=== PATIENT | female | born 1955 | race Caucasian/White ===

== ENCOUNTER 2023-11-12 09:21 | Emergency (ER) | payer MEDICARE, OTHER ==
--- NOTE | 2023-11-12 09:25 | ERPHSYRPT ---
- History of Present Illness Time Seen by Provider: 11/12/23 09:25 Source: patient, EMS Exam Limitations: no limitations Physician History: This is a 68-year-old morbidly obese white female patient on her porch swing this morning when the porch swing change broke and the patient was sitting in the chair portion. She hit the porch then fell backwards off the porch appr oximately 3 feet injuring her bilateral ribs, and hitting her head. She denies loss of consciousness. She denies headache. She denies neck pain. However, the patient is on Coumadin. Patient was brought into the hospital by the paramedics. Patient's blood sugar on arrival is 96. Additional, independent history was obtained from the patient's daughter. Occurred: just prior to arrival Reason for Fall: fell from height Injuries/Pain Location: head, chest Loss of Consciousness: no loss of consciousness Quality: aching (Lateral chest wall) Severity of Pain-Max: moderate (Bilateral chest wall) Severity of Pain-Current: moderate (Bilateral chest wall) Associated Symptoms (Fall): other (Bilateral chest wall pain) Allergies/Adverse Reactions: No Known Drug Allergies Allergy (Verified 11/12/23 09:24) Home Medications: Albuterol Sulfate [Albuterol Sulfate Hfa] 2 puff PO Q4-6HPRN PRN 11/12/23 [History] Glimepiride 2 mg [Amaryl 2 MG] 2 mg PO DAILY 11/12/23 [History] Meclizine HCl 25 mg [Antivert 25 mg] 25 mg PO TID PRN 11/12/23 [History] Metformin HCl 500 mg [Glucophage 500 MG] 1,000 mg PO BID 11/12/23 [History ] Pioglitazone 30 mg [Actos 30 MG] 30 mg PO DAILY 11/12/23 [History] Warfarin Sodium 1 mg [Coumadin] See Rx Instructions .ROUTE .COMPLEX 11/12/23 [History] Travel Risk - International Travel Have you traveled outside of the country in past 3 weeks: No - Emerging Infectious Disease Are you exhibiting symptoms associated with any current EIDs: No - Review of Systems Constitutional: No Symptoms Eyes: No Symptoms Ears, Nose, & Throat: No Symptoms Respiratory: No Symptoms Cardiac: No Symptoms Abdominal/Gastrointestinal: No Symptoms Genitourinary Symptoms: No Symptoms Musculoskeletal: Fall, Injury (Lateral chest wall) Skin: No Symptoms Neurological: No Symptoms Psychological: No Symptoms Endocrine: No Symptoms Hematologic/Lymphatic: No Symptoms Immunological/Allergic: No Symptoms All Other Systems: Reviewed and Negative - Past Medical History Pertinent Past Medical History: Yes - Past Surgical History Past Surgical History: Yes - Nursing Vital Signs Nursing Vital Signs: Initial Vital Signs Temperature 97.3 F 11/12/23 09:26 Pulse Rate 86 11/12/23 09:26 Respiratory Rate 20 11/12/23 09:26 Blood Pressure 120/71 11/12/23 09:26 O2 Sat by Pulse Oximetry 97 11/12/23 09:26 Pain Scale Pain Intensity 8 - [place] Coma Score Best Eye Response ([place]): (4) open spontaneously Best Verbal Response ([place]): (5) oriented Best Motor Response ([place]): (6) obeys commands [place] Total: 15 - Physical Exam General Appearance: no apparent distress, alert, anxiety Head Injury: no evidence of injury Eye Exam: PERRL/EOMI, eyes nml inspection ENT Exam: airway nml, nml ext.inspection, No evidence of ENT injury Neck Exam: supple, trachea midline, full range of motion, normal alignment, normal inspection Respiratory/Chest Exam: chest tenderness (Chest wall tenderness to palpation.), normal breath sounds, rib tenderness (Bilateral, multiple), No respiratory distress, No ecchymosis, No crepitus, No decreased breath sounds, No wheezing, No accessory muscle use, No subcutaneous emphysema, No palpable fracture, No paradoxical movements Cardiovascular Exam: normal heart sounds, regular rate/rhythm, normal peripheral pulses Gastrointestinal Exam: soft, normal bowel sounds, No tenderness Rectal Exam: not done Back Exam: normal inspection, normal range of motion, No CVA tenderness, No vertebral tenderness Extremity Exam: normal inspection, normal range of motion, pelvis stable Neurologic Exam: alert, oriented x 3, cooperative, 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 No acute isch emia present. QTc is 485.) Ordered Tests: Active Orders 24 hr Category Date Time Status EKG-ER Only STAT Care 11/12/23 11:27 Active IV Insertion STAT Care 11/12/23 11:15 Active CERVICAL SPINE WO CONTRAST [CT] Stat Exams 11/12/23 09:50 Completed CHEST WITHOUT CONTRAST [CT] Stat Exams 11/12/23 09:50 Completed HEAD WITHOUT CONTRAST [CT] Stat Exams 11/12/23 09:50 Completed CBC W DIFF Stat Lab 11/12/23 11:25 Completed CMP Stat Lab 11/12/23 11:25 Completed MAGNESIUM Stat Lab 11/12/23 11:25 Completed POCT GLUCOSE Stat Lab 11/12/23 09:24 Completed PROTIME WITH INR Stat Lab 11/12/23 11:25 Completed TROPONIN Q4H Lab 11/12/23 11:25 Completed TROPONIN Q4H Lab 11/12/23 15:30 Ordered TROPONIN Q4H Lab 11/12/23 19:30 Ordered Medication Summary Discontinued Medications Generic Name Dose Route Start Last Admin Trade Name Freq PRN Reason Stop Dose Admin Hydromorphone HCl 1 mg 11/12/23 09:58 11/12/23 10:09 Hydromorphone 1 Mg/1ml Inj IM 11/12/23 09:59 1 mg STAT ONE Administration Hydromorphone HCl Confirm 11/12/23 10:05 Hydromorphone 1 Mg/1ml Inj Administered 11/12/23 10:06 Dose 1 mg .ROUTE .STK-MED ONE Ondansetron HCl 4 mg 11/12/23 09:59 11/12/23 10:08 Zofran 4 Mg/Udtablet Orally Disintegrating PO 11/12/23 10:00 4 mg STAT ONE Administration Ondansetron HCl Confirm 11/12/23 10:05 Zofran 4 Mg/Udtablet Orally Disintegrating Administered 11/12/23 10:06 Dose 4 mg .ROUTE .STK-MED ONE Orphenadrine Citrate 60 mg 11/12/23 12:11 11/12/23 12:17 Orphenadrine Citrate 60 Mg/2 Ml Vial IV 11/12/23 12:12 60 mg STAT ONE Administration Orphenadrine Citrate Confirm 11/12/23 12:16 Orphenadrine Citrate 60 Mg/2 Ml Vial Administered 11/12/23 12:17 Dose 60 mg .ROUTE .STK-MED ONE Lab/Rad Data: Laboratory Result Diagrams 11/12/23 11:25 11/12/23 11:25 Laboratory Results 11/12/23 11/12/23 11/12/23 Range/Units 11:25 11:25 11:25 WBC (3.98-10.04) x10^3/uL RBC (3.93-5.22) x10^6/uL Hgb (11.2-15.7) g/dL Hct (34.1-44.9) % MCV (79.4-94.8) fL MCH (25.6-32.2) pg MCHC (32.2-35.5) g/dL RDW (11.7-14.4) % Plt Count (182-369) x10^3/uL MPV (9.4-12.3) fL Gran % (34.0-71.1) % Immature Gran % (Auto) (0.001-0.429) % Nucleat RBC Rel Count (0.00-0.2) % Eos # (Auto) (0.04-0.36) x10^3/uL Immature Gran # (Auto) (0.001-0.031) x10^3u/L Absolute Lymphs (auto) (1.18-3.74) x10^3/uL Absolute Monos (auto) (0.24-0.86) x10^3/uL Absolute Nucleated RBC (0.00-0.012) x10^3u/L Lymphocytes % (19.3-51.7) % Monocytes % (4.7-12.5) % Eosinophils % (0.7-5.8) % Basophils % (0.1-1.2) % Absolute Granulocytes (1.56-6.13) x10^3/uL Basophils # (0.01-0.08) x10^3/uL PT 26.9 H (9.4-12.5) SECONDS INR 2.63 (0.8-3.0) Sodium 138 (135-145) mmol/L Potassium 4.4 (3.5-5.1) mmol/L Chloride 102 (98-107) mmol/L Carbon Dioxide 28 (22-30) mmol/L Anion Gap 12.2 (5-15) MEQ/L BUN 11 (7-17) mg/dL Creatinine 0.84 (0.52-1.04) mg/dL Estimated GFR 74.7 ML/MIN Glucose 122 H (74-106) mg/dL POC Glucometer (74 to 106) mg/dL Calcium 8.9 (8.4-10.2) mg/dL Magnesium 1.3 L (1.6-2.3) mg/dL Total Bilirubin 1.20 (0.2-1.3) mg/dL AST 36 (14-36) U/L ALT 24 (0-35) U/L Alkaline Phosphatase 86 (38-126) U/L Troponin I < 0.012 (0.000-0.033) ng/mL Serum Total Protein 7.3 (6.3-8.2) g/dL Albumin 4.1 (3.5-5.0) g/dL 11/12/23 11/12/23 Range/Units 11:25 09:24 WBC 10.4 H (3.98-10.04) x10^3/uL RBC 3.65 L (3.93-5.22) x10^6/uL Hgb 10.4 L (11.2-15.7) g/dL Hct 33.9 L (34.1-44.9) % MCV 92.9 (79.4-94.8) fL MCH 28.5 (25.6-32.2) pg MCHC 30.7 L (32.2-35.5) g/dL RDW 14.6 H (11.7-14.4) % Plt Count 179 L (182-369) x10^3/uL MPV 10.0 (9.4-12.3) fL Gran % 84.5 H (34.0-71.1) % Immature Gran % (Auto) 0.9 H (0.001-0.429) % Nucleat RBC Rel Count 0.0 (0.00-0.2) % Eos # (Auto) 0.06 (0.04-0.36) x10^3/uL Immature Gran # (Auto) 0.09 H (0.001-0.031) x10^3u/L Absolute Lymphs (auto) 0.79 L (1.18-3.74) x10^3/uL Absolute Monos (auto) 0.64 (0.24-0.86) x10^3/uL Absolute Nucleated RBC 0.00 (0.00-0.012) x10^3u/L Lymphocytes % 7.6 L (19.3-51.7) % Monocytes % 6.1 (4.7-12.5) % Eosinophils % 0.6 L (0.7-5.8) % Basophils % 0.3 (0.1-1.2) % Absolute Granulocytes 8.83 H (1.56-6.13) x10^3/uL Basophils # 0.03 (0.01-0.08) x10^3/uL PT (9.4-12.5) SECONDS INR (0.8-3.0) Sodium (135-145) mmol/L Potassium (3.5-5.1) mmol/L Chloride (98-107) mmol/L Carbon Dioxide (22-30) mmol/L Anion Gap (5-15) MEQ/L BUN (7-17) mg/dL Creatinine (0.52-1.04) mg/dL Estimated GFR ML/MIN Glucose (74-106) mg/dL POC Glucometer 96 (74 to 106) mg/dL Calcium (8.4-10.2) mg/dL Magnesium (1.6-2.3) mg/dL Total Bilirubin (0.2-1.3) mg/dL AST (14-36) U/L ALT (0-35) U/L Alkaline Phosphatase (38-126) U/L Troponin I (0.000-0.033) ng/mL Serum Total Protein (6.3-8.2) g/dL Albumin (3.5-5.0) g/dL - Progress Progress Note: 11/12/23 10:33 My medical decision making and the assignment of low to moderate complexity of this patient's medical issue today is based on review of the patient's past medical history, review of the patient's medication list, review the patient drug allergy list, history present illness and physical findings on examination. The workup in this patient includes CT scan of the head, CT scan of the cervical spine and CT scan of the chest all without contrast. Differential diagnosis includes but is not limited to acute intracranial abnormality, contusions of head and chest, fracture or subluxation of cervical spine, rib fractures, rib contusion 11/12/23 11:33 Patient's vital signs have been stable throughout her stay in the emergency department thus far. However, the patient and her daughter state that the patient was feeling "feverish" and does not feel well. The symptoms began when she fell and have worsened. Although her symptoms as described were worse her vital signs have remained stable. She then began having increased shortness of breath and her oxygen saturation level dropped, most likely secondary to the D ilaudid the patient received. We will place an intravenous line and perform a twelve-lead EKG and obtain troponin level 11/12/23 13:[address] scan of the head without contrast was interpreted by the radiologist and I reviewed the impression. Impression straits no gross intracranial abnormalities. CT scan of the cervical spine shows negative for acute fracture or subluxation. There are are multilevel degenerative changes. The remainder of the CT scan of the cervical spine is negative. This study was interpreted by the radiologist and I reviewed the impression. CT scan of the chest without contrast was interpreted by the radiologist and I reviewed the impression. Impression states acute bilateral rib fractures without hemothorax or pneumothorax. There is a minimally displaced left ribs 5 through 9 and anterior lateral right ribs 4 through 8. There is a chronic, remote T12 compression fracture with 50 to 75% height loss. 11/12/23 13:15 I interpreted the patient's laboratory data results. Based on the laboratory data results, there are no acute, emergent medical issues. 11/12/23 13:46 We first contacted [facility] in order to transfer this patient to facility where they have trauma service as well as pulmonary service. The patient needs pulmonary toilet and observation at least overnight and possibly longer. However, in the middle of the conversation with [facility] transfer center, the patient and the patient family preferred being transferred to [facility] if possible. We then contacted [facility] in [facility]. They had no beds available. We placed another call to [facility] transfer center. They are waiting to determine whether or not their facility has trauma service available. 11/12/23 14:04 [facility] did call back and told no longer have trauma service available. Therefore, the family states that transfer to [facility] in [place] was fine. I spoke with Dr. Poe, the trauma service physician on at this time. I reviewed the patient history, physical findings, presenting complaint and results of our workup. He accepts the patient in transfer. Dr. Poe is going to notify [facility] emergency department and we will be transferring this patient emergency department to emergency department. Counseled pt/family regarding: lab results, diagnosis, rad results Medical Desision Making - Independent Historian Additional History obtained from: Family - Diagnostic Testing Diagnostic test were ordered, analyzed, and reviewed by me: Yes Radiological Interpretation: Reviewed by me, Teleradiologist Report - Risk of complications The pt has a high risk of morbidity or mortality based on: Decision regarding hospitilization or escalation of hosp level of care - Departure Departure Disposition: Transfer Clinical Impression: Multiple fractures of ribs of both sides Condition: Fair Critical Care Time: No Referrals: EKATERINA WALL MD [Primary Care Provider] - Follow up/PCP as directed
[2023-11-12 09:38] VITALS: TEMP 97.3
[2023-11-12] MEDS ORDERED: ZOFRAN ODT 4 MG ONE (10:05)
[2023-11-12] MEDS ORDERED: Hydromorphone 1 mg/ml Injection ONE ×2 (10:05→14:25)
[2023-11-12] MEDS: ZOFRAN ODT 4 MG PO ONE (10:08)
[2023-11-12] MEDS: Hydromorphone 1 mg/ml Injection IM ONE (10:09)
--- NOTE | 2023-11-12 11:28 | XRAY ---
Indication: Status post fall. Blood thinner therapy. Multiple contiguous axial images obtained through the head without contrast. Comparison: None Minimal motion artifact degrades study. Age-appropriate global atrophy. No acute intracranial hemorrhage, abnormal extra-axial fluid collection, or mass effect. Fourth ventricle is midline without hydrocephalus. Bony calvarium grossly intact. Visualized paranasal sinuses and mastoid air cells are clear. Impression: Motion artifact. No gross acute intracranial abnormalities.
[2023-11-12 11:29] LABS: Absolute Neutrophil Ct (ANC) 8.83 x10^3/uL (1.56-6.13); BASOPHIL % 0.3 % (0.1-1.2); Basophil (Absolute #) 0.03 x10^3/uL (0.01-0.08); Eosinophil % 0.6 % (0.7-5.8); Eosinophil (Absolute #) 0.06 x10^3/uL (0.04-0.36); Hematocrit 33.9 % (34.1-44.9); Hemoglobin 10.4 g/dL (11.2-15.7); IMMATURE GRAN # 0.09 x10^3u/L (0.001-0.031); IMMATURE GRAN % 0.9 % (0.001-0.429); Lymphocyte (Absolute #) 0.79 x10^3/uL (1.18-3.74); Lymphocytes % 7.6 % (19.3-51.7); Mean Cell Volume 92.9 fL (79.4-94.8); Mean Corpuscular Hemoglobin 28.5 pg (25.6-32.2); Mean Corpuscular Hgb Concent. 30.7 g/dL (32.2-35.5); Monocyte (Absolute #) 0.64 x10^3/uL (0.24-0.86); Monocytes % 6.1 % (4.7-12.5); Neutrophil % 84.5 % (34.0-71.1); Platelet Count 179 x10^3/uL (182-369); Red Blood Count 3.65 x10^6/uL (3.93-5.22); Red Cell Distribution Width 14.6 % (11.7-14.4); White Blood Count 10.4 x10^3/uL (3.98-10.04)
--- NOTE | 2023-11-12 11:30 | XRAY ---
Indication: Status post fall. Blood thinner therapy. Multiple contiguous axial images obtained through the cervical spine. Sagittal and coronal reformatted images obtained. Comparison: None Osseous structures demineralized consistent with patient's age. Axial images negative for acute fracture, suspicious bony lesions, spinal canal stenosis. Mild C5-T1 degenerative endplate spurring and mild multilevel bilateral degenerative facet hypertrophy. Sagittal and coronal reformatted images demonstrates normal alignment. C5-T1 degenerative disc space loss. No acute compression fracture, subluxation, or jumped facet. Normal appearing craniocervical junction. Visualized noncontrasted soft tissues are unremarkable. CTDI is CT chest reported separately. Impression: Osteopenia and multilevel degenerative changes. Remaining CT cervical spine is negative.
--- NOTE | 2023-11-12 11:38 | XRAY ---
Indication: Status post fall. Blood thinner therapy. Multiple contiguous axial images obtained through the chest without contrast. Comparison: None Lungs demonstrate scattered bilateral subsegmental atelectasis/scarring. No suspicious pulmonary mass/nodule, infiltrate, effusion, or pneumothorax. Heart is enlarged. Aorta is minimally atherosclerotic without aneurysm. No pathologic mediastinal lymphadenopathy. Bony thorax demonstrates minimally displaced lateral left 5-9 and anterolateral right 4-8 acute rib fractures. Elsewhere osteopenia, minimal/mild multilevel degenerative changes throughout spine, and remote T12 compression fracture with 50-75% height loss. Limited upper abdomen demonstrates right renal cortical thinning/scarring and incompletely visualized right renal hydronephrosis versus parapelvic cysts. Impression: 1. Acute bilateral rib fractures without hemothorax/pneumothorax. 2. Chronic findings including cardiomegaly, arteriosclerotic disease, and chronic bony findings. 3. Incompletely visualized right renal hydronephrosis versus parapelvic cysts. Renal sonogram may help differentiate if there is clinical concern.
[2023-11-12 11:46] LABS: INR 2.63 (0.8-3.0); PROTIME 26.9 SECONDS (9.4-12.5)
[2023-11-12] MEDS ORDERED: Norflex 60 MG/2 ML ONE (12:16)
[2023-11-12] MEDS: Norflex 60 MG/2 ML IV ONE (12:17)
[2023-11-12 12:32] LABS: ALBUMIN 4.1 g/dL (3.5-5.0); ANION GAP 12.2 MEQ/L (5-15); BILIRUBIN,TOTAL 1.2 mg/dL (0.2-1.3); Calcium 8.9 mg/dL (8.4-10.2); Creatinine 1 0.84 mg/dL (0.52-1.04); EST GLOMERULAR FILTRATION RATE 74.7 ML/MIN; MAGNESIUM 1.3 mg/dL (1.6-2.3); Potassium 4.4 mmol/L (3.5-5.1); Total Protein 7.3 g/dL (6.3-8.2)
[2023-11-12] MEDS: Hydromorphone 1 mg/ml Injection IV ONE (14:26)
[2023-11-12 14:30] VITALS: O2SAT 99
[2023-11-12 14:31] VITALS: BP 131/88; PULSE 96; RESP 17
== END 2023-11-12 15:11 | disposition short-term general hospital (02) ==
LOC: ED 09:21
DX: S22.43XA Multiple fractures of ribs, bilateral, initial encounter for closed fracture (principal); W17.89XA Other fall from one level to another, initial encounter; Y92.007 Garden or yard of unspecified non-institutional (private) residence as the place of occurrence of the external cause; Z79.84 Long term (current) use of oral hypoglycemic drugs; Z79.01 Long term (current) use of anticoagulants; Z79.899 Other long term (current) drug therapy
CPT/HCPCS: 36000; 36415; 70450; 71250; 72125; 80053; 82947; 83735; 84484; 85025; 85610; 93005; 93041; 96372; 96374; 96376; 99285; J1170; J2360; Q0162

== ENCOUNTER 2024-02-08 19:42 | Emergency (ER) | payer MEDICARE ==
--- NOTE | 2024-02-08 19:46 | ERPHSYRPT ---
- History of Present Illness Time Seen by Provider: 02/08/24 19:46 Source: patient, family, EMS Exam Limitations: no limitations Physician History: This is a 76-year-old obese white female patient of Dr. Rodriguez who is on Coumadin and has a history of atrial fibrillation, chronic intermittent dizziness on meclizine, diabetes, COPD/asthma and brittle bone disease who arrives by paramedics with a complaint of head pain and right side neck pain after falling approximately 3 feet off of her porch hitting her head and neck on the right side. Patient became dizzy as she was walking into the home and fell. She denies loss of consciousness. Patient arrives to the emergency department with a c-collar in place. Occurred: just prior to arrival Injuries/Pain Location: head, neck Loss of Consciousness: no loss of consciousness Quality: aching Severity of Pain-Max: moderate Severity of Pain-Current: moderate Modifying Factors: Improves With: movement Associated Symptoms (Fall): dizziness (None now), headache, neck pain, No confusion, No chest pain Allergies/Adverse Reactions: No Known Drug Allergies Allergy (Verified 02/08/24 19:46) Home Medications: Apixaban [Eliquis] 5 mg PO BID 02/08/24 [History] Bupropion HCl 150 mg Sr [Wellbutrin SR 150 MG] 150 mg PO DAILY 02/08/24 [History] Duloxetine HCl 60 mg PO DAILY 02/08/24 [History] Famotidine 40 mg PO DAILY 02/08/24 [History] Gabapentin 400 mg PO QID 02/08/24 [History] Hydrochlorothiazide 25 mg [hydroDIURIL 25 MG] 25 mg PO DAILY 02/08/24 [His tory] Levothyroxine Sodium 50 mcg PO DAILY 02/08/24 [History] Meclizine HCl 25 mg [Antivert 25 mg] 25 mg PO TID 02/08/24 [History] Mirtazapine 15 mg PO HS 02/08/24 [History] Primidone 50 MG [Mysoline 50Mg] 50 mg PO TID 02/08/24 [History] Sertraline HCl [Zoloft] 25 mg PO DAILY 02/08/24 [History] Simvastatin 80 mg PO DAILY 02/08/24 [History] Sucralfate 1 gm [Carafate 1 GM] 1 g PO QID 02/08/24 [History] Tirzepatide [Mounjaro] 2.5 mg SQ WEEKLY 02/08/24 [History] Hx Tetanus, Diphtheria Vaccination/Date Given: Yes Hx Influenza Vaccination/Date Given: Yes Hx Pneumococcal Vaccination/Date Given: Yes Travel Risk - International Travel Have you traveled outside of the country in past 3 weeks: No - Emerging Infectious Disease Are you exhibiting symptoms associated with any current EIDs: No - Review of Systems Constitutional: No Symptoms Eyes: No Symptoms Ears, Nose, & Throat: No Symptoms Respiratory: No Symptoms Cardiac: No Symptoms Abdominal/Gastrointestinal: No Symptoms Genitourinary Symptoms: No Symptoms Musculoskeletal: Neck Pain Skin: No Symptoms Neurological: Dizziness (Now resolved), Headache Psychological: No Symptoms Endocrine: No Symptoms Hematologic/Lymphatic: No Symptoms Immunological/Allergic: No Symptoms All Other Systems: Reviewed and Negative - Past Medical History Pertinent Past Medical History: Yes Cardiac History: Arrhythmia, Other Respiratory History: Asthma, COPD Endocrine Medical History: Diabetes Type II Musculoskeletal History: Fractures GI Medical History: Gallbladder Disease Other Medical History: A-fib, brittle bone disease - Past Surgical History Past Surgical History: Yes Gastrointestinal: Appendectomy, Cholecystectomy Musculoskeletal: Other Female Surgical History: Hysterectomy, Section, Tubal Ligation Other Surgical History: bilateral ankles - Social History Smoking Status: Former smoker Drug Use: other - Social Determinants of Health Will the patient participate in the screening: Yes Do you worry about a steady place to live?: No In the past 12 months,have you had to go without utilities?: No Transportation Issues: No Has anyone in your support network made you feel unsafe?: No Have you or anyone in your house had to go without enough: No - Nursing Vital Signs Nursing Vital Signs: Initial Vital Signs Pulse Rate 77 02/08/24 19:47 Respiratory Rate 21 02/08/24 19:47 Blood Pressure 122/72 02/08/24 19:47 O2 Sat by Pulse Oximetry 98 02/08/24 19:47 Pain Scale Pain Intensity 9 - Vijay Coma Score Best Eye Response (Vijay): (4) open spontaneously Best Verbal Response (Vijay): (5) oriented Best Motor Response (Vijay): (6) obeys commands Vijay Total: 15 - Physical Exam General Appearance: no apparent distress, alert, anxiety, obese Head Injury: no evidence of injury Eye Exam: PERRL/EOMI, eyes nml inspection ENT Exam: airway nml, nml ext.inspection Neck Exam: trachea midline, c-collar in place Respiratory/Chest Exam: normal breath sounds, No chest tenderness, No respi ratory distress, No ecchymosis, No crepitus, No accessory muscle use Cardiovascular Exam: normal heart sounds, regular rate/rhythm Gastrointestinal Exam: soft, normal bowel sounds Rectal Exam: not done Back Exam: normal inspection, normal range of motion, No CVA tenderness, No vertebral tenderness Extremity Exam: normal inspection, normal range of motion, pelvis stable Neurologic Exam: alert, oriented x 3, cooperative, second rigger II-XII nml as tested, n ormal mood/affect, sensation nml Skin Exam: normal color, warm, dry SpO2 Interpretation: normal O2 Delivery: Room Air Ordered Tests: Active Orders 24 hr Category Date Time Status EKG-ER Only STAT Care 02/08/24 20:29 Active IV Insertion STAT Care 02/08/24 20:26 Active CERVICAL SPINE WO CONTRAST [CT] Stat Exams 02/08/24 19:46 Taken HEAD WITHOUT CONTRAST [CT] Stat Exams 02/08/24 19:46 Taken CBC W DIFF Stat Lab 02/08/24 20:40 Completed CMP Stat Lab 02/08/24 20:40 Received MAGNESIUM Stat Lab 02/08/24 20:40 Received POCT GLUCOSE Stat Lab 02/08/24 19:51 Completed PT INR [PROTIME WITH INR] Stat Lab 02/08/24 20:40 Completed TROPONIN Q4H Lab 02/08/24 20:40 Received TROPONIN Q4H Lab 02/09/24 00:30 Ordered TROPONIN Q4H Lab 02/09/24 04:30 Ordered UA W/RFX UR CULTURE Stat Lab 02/08/24 20:29 Ordered Medication Summary Generic Name Dose Route Start Last Admin Trade Name Freq PRN Reason Stop Dose Admin Sodium Chloride 1,000 mls @ 50 mls/hr 02/08/24 20:30 02/08/24 20:33 Sodium Chloride 0.9% 1000 Ml IV 03/09/24 20:29 50 mls/hr .Q20H TYRELL Administration Discontinued Medications Generic Name Dose Route Start Last Admin Trade Name Freq PRN Reason Stop Dose Admin Morphine Sulfate 2 mg 02/08/24 20:33 02/08/24 20:41 Morphine Sulfate 2 Mg/Ml Inj IV 02/08/24 20:34 2 mg STAT ONE Administration Morphine Sulfate Confirm 02/08/24 20:38 Morphine Sulfate 2 Mg/Ml Inj Administered 02/08/24 20:39 Dose 2 mg .ROUTE .STK-MED ONE Ondansetron HCl 4 mg 02/08/24 20:33 02/08/24 20:41 Ondansetron Hcl 4 Mg/2 Ml Vial IV 02/08/24 20:34 4 mg STAT ONE Administration Ondansetron HCl Confirm 02/08/24 20:38 Ondansetron Hcl 4 Mg/2 Ml Vial Administered 02/08/24 20:39 Dose 4 mg .ROUTE .STK-MED ONE Lab/Rad Data: Laboratory Result Diagrams 02/08/24 20:40 Laboratory Results 02/08/24 02/08/24 02/08/24 Range/Units 20:40 20:40 19:51 WBC 9.5 (3.98-10.04) x10^3/uL RBC 3.96 (3.93-5.22) x10^6/uL Hgb 11.1 L (11.2-15.7) g/dL Hct 35.0 (34.1-44.9) % MCV 88.4 (79.4-94.8) fL MCH 28.0 (25.6-32.2) pg MCHC 31.7 L (32.2-35.5) g/dL RDW 14.9 H (11.7-14.4) % Plt Count 159 L (182-369) x10^3/uL MPV 10.1 (9.4-12.3) fL Gran % 80.8 H (34.0-71.1) % Immature Gran % (Auto) 0.6 H (0.001-0.429) % Nucleat RBC Rel Count 0.0 (0.00-0.2) % Eos # (Auto) 0.12 (0.04-0.36) x10^3/uL Immature Gran # (Auto) 0.06 H (0.001-0.031) x10^3u/L Absolute Lymphs (auto) 0.96 L (1.18-3.74) x10^3/uL Absolute Monos (auto) 0.66 (0.24-0.86) x10^3/uL Absolute Nucleated RBC 0.00 (0.00-0.012) x10^3u/L Lymphocytes % 10.1 L (19.3-51.7) % Monocytes % 7.0 (4.7-12.5) % Eosinophils % 1.3 (0.7-5.8) % Basophils % 0.2 (0.1-1.2) % Absolute Granulocytes 7.64 H (1.56-6.13) x10^3/uL Basophils # 0.02 (0.01-0.08) x10^3/uL PT 12.4 (9.4-12.5) SECONDS INR 1.15 (0.8-3.0) POC Glucometer 204 H (74 to 106) mg/dL - Progress Progress: unchanged, pain not gone completely, re-examined Progress Note: 02/08/24 20:40 My medical decision making and the assignment of at least moderate complexity to this patient's medical issue today is based on review of the patient's past medical history, review the patient's medication list, reviewed patient drug allergy list, history present illness and physical findings on examination. The workup in this patient includes CT scan of the head and neck without contrast, CBC, CMP, urinalysis, twelve-lead EKG, troponin level. Differential diagnosis includes but is not limited to acute intracranial abnormality, acute cervical spine abnormality, electrolyte abnormalities, symptomatic anemia, electrolyte abnormalities, urinary tract infection 02/08/24 21:[address] scan of the head without contrast was interpreted by the radiologist and I reviewed the impression. The impression states negative CT scan of the head without contrast study. CT scan of the cervical spine without contrast was interpreted by Dr. Vasquez, our in-house radiologist and I reviewed the impression as well as spoke to him. He interpreted the cervical spine without contrast as nondisplaced type III C2 odontoid fracture also nondisplaced fracture C2 right lamina and spinous process. I spoke with Dr. Salinas at [facility] in [facility]. I reviewed the patient history, presenting complaint, physical findings which i ncluded no neurologic deficit, and the results of the CT scan studies that were performed. She accepts the patient in transfer to the emergency department. We are making discs for this patient to take with her during transport to that facility. According to our radiology department, our hospital does not have the ability to upload radiographic studies to [facility] through the cloud. Counseled pt/family regarding: lab results, diagnosis, rad results Medical Desision Making - Independent Historian Additional History obtained from: Family - Discussion of managment Care discussed with:: specialist (Dr. David at [facility]) Reviewed:: Test results, Need for additional workup Will see patient: in ED (In [place]) - Diagnostic Testing Diagnostic test were ordered, analyzed, and reviewed by me: Yes Radiological Interpretation: Reviewed by me, Teleradiologist Report - Risk of complications The pt has a high risk of morbidity or mortality based on: Decision regarding hospitilization or escalation of hosp level of care - Departure Departure Disposition: Home Clinical Impression: Fall with significant injury, Odontoid fracture, Hypokalemia, Hypomagnesemia Condition: Fair Critical Care Time: Yes Critical Care Time(excluding separately billable procedures): Critical 30-74 mins (40) Referrals: [facility]LOCATION] - Follow up/PCP as directed
[2024-02-08 19:59] VITALS: TEMP 97.7
[2024-02-08] MEDS ORDERED: Sodium Chloride 0.9% 1000 ML 1,000 ML ONE (20:31)
[2024-02-08] MEDS: Sodium Chloride 0.9% 1000 ML 1,000 ML IV SCH (20:33)
[2024-02-08] MEDS ORDERED: Zofran 4 MG/2 ML VIAL ONE (20:38)
[2024-02-08] MEDS ORDERED: MORPHINE SULFATE 2 MG INJ ONE ×2 (20:38→21:27)
[2024-02-08] MEDS: MORPHINE SULFATE 2 MG INJ IV ONE ×2 (20:41→21:29)
[2024-02-08] MEDS: Zofran 4 MG/2 ML VIAL IV ONE (20:41)
[2024-02-08 20:47] LABS: Absolute Neutrophil Ct (ANC) 7.64 x10^3/uL (1.56-6.13); BASOPHIL % 0.2 % (0.1-1.2); Basophil (Absolute #) 0.02 x10^3/uL (0.01-0.08); Eosinophil % 1.3 % (0.7-5.8); Eosinophil (Absolute #) 0.12 x10^3/uL (0.04-0.36); Hemoglobin 11.1 g/dL (11.2-15.7); IMMATURE GRAN # 0.06 x10^3u/L (0.001-0.031); IMMATURE GRAN % 0.6 % (0.001-0.429); Lymphocyte (Absolute #) 0.96 x10^3/uL (1.18-3.74); Lymphocytes % 10.1 % (19.3-51.7); Mean Cell Volume 88.4 fL (79.4-94.8); Mean Corpuscular Hgb Concent. 31.7 g/dL (32.2-35.5); Mean Platelet Volume 10.1 fL (9.4-12.3); Monocyte (Absolute #) 0.66 x10^3/uL (0.24-0.86); Neutrophil % 80.8 % (34.0-71.1); Platelet Count 159 x10^3/uL (182-369); Red Blood Count 3.96 x10^6/uL (3.93-5.22); Red Cell Distribution Width 14.9 % (11.7-14.4); White Blood Count 9.5 x10^3/uL (3.98-10.04)
[2024-02-08 21:01] LABS: INR 1.15 (0.8-3.0); PROTIME 12.4 SECONDS (9.4-12.5)
[2024-02-08 21:08] LABS: ANION GAP 14.4 MEQ/L (5-15); BILIRUBIN,TOTAL 1.3 mg/dL (0.2-1.3); Calcium 8.6 mg/dL (8.4-10.2); Creatinine 1 1.24 mg/dL (0.52-1.04); EST GLOMERULAR FILTRATION RATE 46.8 ML/MIN; Total Protein 7.1 g/dL (6.3-8.2)
[2024-02-08 21:19] VITALS: RESP 14
[2024-02-08 21:29] LABS: MAGNESIUM 0.9 mg/dL (1.6-2.3); Potassium 2.6 mmol/L (3.5-5.1)
[2024-02-08] MEDS ORDERED: Magnesium Sulfate 1 GM/2 ML VIAL ONE (21:39)
[2024-02-08] MEDS ORDERED: POTASSIUM CHLORIDE 20 mEq IN WATER 100ML 100 ML IV ONE (21:40)
[2024-02-08] MEDS ORDERED: Magnesium 1 Gm / 100 Ml D5W*** 100 ML IV ONE (21:40)
[2024-02-08] MEDS: Magnesium Sulfate 1 GM/2 ML VIAL IV ONE (21:42)
[2024-02-08] MEDS: POTASSIUM CHLORIDE 20 mEq IN WATER 100ML 20 MEQ/100 ML BAG IV ONE (21:45)
[2024-02-08] MEDS: Magnesium 1 Gm / 100 Ml D5W*** 100 ML IV ONE (21:45)
[2024-02-08 22:08] VITALS: BP 129/84; PULSE 89; O2SAT 95
--- NOTE | 2024-02-09 08:36 | XRAY ---
Indication: Dizziness. Status post fall. Stroke. Multiple contiguous axial images obtained through the head without contrast. Comparison: November 12, 2023 Again age-appropriate global atrophy. No acute intracranial hemorrhage, abnormal extra-axial fluid collection, or mass effect. Fourth ventricle is midline without hydrocephalus. Adan-white matter differentiation preserved. Bony calvarium intact. Visualized paranasal sinuses and mastoid air cells are clear. CT cervical spine reported separately. Impression: Continued negative CT head without contrast exam.
--- NOTE | 2024-02-09 08:46 | XRAY ---
Indication: Pain following fall. Multiple contiguous axial images obtained through the cervical spine. Sagittal and coronal reformatted images obtained. Comparison: November 12, 2023 Osseous structures remain demineralized. C2 demonstrates new minimally angulated odontoid type III fracture. Fracture line further extends vertically through anterior body of C2. Posterior elements of C2 also demonstrates new nondisplaced fracture right lamina and also minimally displaced comminuted fracture spinous process. Base of skull also demonstrates new nondisplaced comminuted fracture base of left occipital condyle. Above fractures are negative for spinal canal stenosis. Remaining levels demonstrate stable mild C5-T1 degenerative endplate spurring and mild multilevel bilateral degenerative facet hypertrophy. Sagittal and coronal reformatted images demonstrates lordotic straightening, positional versus paraspinal spasm. Stable C5-T1 disc space loss. No acute compression fracture, subluxation, or jumped facet. Normal appearing craniocervical junction. Visualized noncontrasted soft tissues again demonstrate minimal bilateral carotid calcifications. Lung apices clear. Impression: 1. New acute fractures involving anterior and posterior elements of C2 as detailed. 2. New acute fracture base of left occipital condyle. 3. Again chronic findings including osteopenia, multilevel degenerative changes, and bilateral carotid calcifications. Comment: Telephone report was given to Dr. Powell at 2056 hrs. on February 08, 2024.
== END 2024-02-08 22:40 | disposition short-term general hospital (02) ==
LOC: ED 19:42
DX: S12.121A Other nondisplaced dens fracture, initial encounter for closed fracture (principal); S12.191A Other nondisplaced fracture of second cervical vertebra, initial encounter for closed fracture; W17.89XA Other fall from one level to another, initial encounter; Y92.007 Garden or yard of unspecified non-institutional (private) residence as the place of occurrence of the external cause; E87.6 Hypokalemia; E83.42 Hypomagnesemia; R51.9 Headache, unspecified; M54.2 Cervicalgia; E11.9 Type 2 diabetes mellitus without complications; Z79.01 Long term (current) use of anticoagulants; Z79.85 Long-term (current) use of injectable non-insulin antidiabetic drugs; Z79.899 Other long term (current) drug therapy
CPT/HCPCS: 36000; 36415; 70450; 72125; 80053; 82947; 83735; 84484; 85025; 85610; 93005; 96365; 96368; 96374; 96375; 96376; 99285; 99291; J2270; J2405; J3475; J3480

== ENCOUNTER 2024-02-25 22:38 | Emergency (ER) | payer MEDICARE ==
[2024-02-25 23:16] VITALS: PULSE 85; TEMP 98.1; O2SAT 98
[2024-02-25 23:30] LABS: Absolute Neutrophil Ct (ANC) 3.36 x10^3/uL (1.56-6.13); BASOPHIL % 0.4 % (0.1-1.2); Basophil (Absolute #) 0.02 x10^3/uL (0.01-0.08); Eosinophil % 2.2 % (0.7-5.8); Eosinophil (Absolute #) 0.11 x10^3/uL (0.04-0.36); Hematocrit 34.5 % (34.1-44.9); Hemoglobin 11.2 g/dL (11.2-15.7); IMMATURE GRAN # 0.01 x10^3u/L (0.001-0.031); IMMATURE GRAN % 0.2 % (0.001-0.429); Mean Cell Volume 88.9 fL (79.4-94.8); Mean Corpuscular Hemoglobin 28.9 pg (25.6-32.2); Mean Corpuscular Hgb Concent. 32.5 g/dL (32.2-35.5); Mean Platelet Volume 9.9 fL (9.4-12.3); Monocyte (Absolute #) 0.51 x10^3/uL (0.24-0.86); Monocytes % 10.2 % (4.7-12.5); Platelet Count 229 x10^3/uL (182-369); Red Blood Count 3.88 x10^6/uL (3.93-5.22); Red Cell Distribution Width 14.8 % (11.7-14.4)
--- NOTE | 2024-02-25 23:31 | ERPHSYRPT ---
- History of Present Illness Time Seen by Provider: 02/25/24 23:27 Source: patient, family Exam Limitations: no limitations Patient Subjective Stated Complaint: pt states she has had a headache since her fall more than 2 weeks ago, has been getting worse. Triage Nursing Assessment: pt alert and oriented, answers questions approp, pt to room per wheelchair and up with assist of 1. respirations nonlabored. skin warm and dry. c collar in place. pupils equal and reactivept moves bilat upper and lower ext without diff. Physician History: pt states she has had a headache since her fall more than 2 weeks ago, has been getting worse. Patient is 68-year-old female with significant past medical history of diabetes hypertension atrial fibrillation had a fall 4 weeks ago at that time she has a C2 fracture with minimal hematoma which was treated conservatively when she was discharged home with physical therapy as an outpatient since then patient has a headache and patient had another fall. Initially patient was on warfarin but it was changed to Eliquis for the last 1 month. Patient is complaining of mainly frontal and occipital area headache. Patient denies any nausea vomiting. Because of the headache patient is very unsteady as well as patient also has a osteoporosis which is also making her weak in her gait and more propensity to fall. Otherwise patient denies any other symptoms at present in ER. Timing/Duration: week(s) Head Pain Location: frontal, occipital Severity of Pain-Max: moderate Severity of Pain-Current: moderate Recent Head Trauma: head trauma > 24 hrs ago Associated Symptoms: denies symptoms Allergies/Adverse Reactions: No Known Drug Allergies Allergy (Verified 02/25/24 23:17) Home Medications: Apixaban [Eliquis] 5 mg PO BID 02/08/24 [History] Bupropion HCl 150 mg Sr [Wellbutrin SR 150 MG] 150 mg PO DAILY 02/08/24 [History] Duloxetine HCl 60 mg PO DAILY 02/08/24 [History] Famotidine 40 mg PO DAILY 02/08/24 [History] Gabapentin 400 mg PO QID 02/08/24 [History] Hydrochlorothiazide 25 mg [hydroDIURIL 25 MG] 25 mg PO DAILY 02/08/24 [History] Levothyroxine Sodium 50 mcg PO DAILY 02/08/24 [History] Meclizine HCl 25 mg [Antivert 25 mg] 25 mg PO TID 02/08/24 [History] Mirtazapine 15 mg PO HS 02/08/24 [History] Primidone 50 MG [Mysoline 50Mg] 50 mg PO TID 02/08/24 [History] Sertraline HCl [Zoloft] 25 mg PO DAILY 02/08/24 [History] Simvastatin 80 mg PO DAILY 02/08/24 [History] Sucralfate 1 gm [Carafate 1 GM] 1 g PO QID 02/08/24 [History] Tirzepatide [Mounjaro] 2.5 mg SQ WEEKLY 02/08/24 [History] Hx Tetanus, Diphtheria Vaccination/Date Given: Yes Hx Influenza Vaccination/Date Given: Yes Hx Pneumococcal Vaccination/Date Given: Yes Immunizations Up to Date: Yes Travel Risk - International Travel Have you traveled outside of the country in past 3 weeks: No - Emerging Infectious Disease Are you exhibiting symptoms associated with any current EIDs: No - Review of Systems Constitutional: No Fever, No Chills Eyes: No Symptoms Ears, Nose, & Throat: No Symptoms Respiratory: No Cough, No Dyspnea Cardiac: No Chest Pain, No Edema, No Syncope Abdominal/Gastrointestinal: No Abdominal Pain, No Nausea, No Vomiting, No Diarrhea Genitourinary Symptoms: No Dysuria Musculoskeletal: Fall, No Back Pain, No Neck Pain Skin: No Rash Neurological: Headache, No Dizziness, No Focal Weakness, No Sensory Changes Psychological: No Symptoms Endocrine: No Symptoms All Other Systems: Reviewed and Negative - Past Medical History Pertinent Past Medical History: Yes Cardiac History: Arrhythmia, Other Respiratory History: Asthma, COPD Endocrine Medical History: Diabetes Type II Musculoskeletal History: Fractures GI Medical History: Gallbladder Disease Other Medical History: A-fib, brittle bone disease, fall 2.5 weeks ago with c2, c3, c4 fracture and states blood clot behind c4 - Past Surgical History Past Surgical History: Yes Gastrointestinal: Appendectomy, Cholecystectomy Musculoskeletal: Other Female Surgical History: Hysterectomy, Section, Tubal Ligation Other Surgical History: bilateral ankles - Social History Smoking Status: Former smoker Exposure to second hand smoke: No Drug Use: other - Social Determinants of Health Will the patient participate in the screening: Yes Do you worry about a steady place to live?: No Do you have any problems with any of the following?: No known problems In the past 12 months,have you had to go without utilities?: No Transportation Issues: No Has anyone in your support network made you feel unsafe?: No Have you or anyone in your house had to go without enough: No - Nursing Vital Signs Nursing Vital Signs: Initial Vital Signs Temperature 98.1 F 02/25/24 23:01 Pulse Rate 85 02/25/24 23:01 Respiratory Rate 16 02/25/24 23:01 Blood Pressure 137/61 02/25/24 23:01 O2 Sat by Pulse Oximetry 98 02/25/24 23:01 Pain Scale Pain Intensity 10 - Physical Exam General Appearance: no apparent distress Eye Exam: PERRL/EOMI Ears, Nose, Throat Exam: normal ENT inspection, moist mucous membranes Neck Exam: normal inspection, supple, full range of motion, No meningismus Respiratory Exam: normal breath sounds, lungs clear Cardiovascular Exam: regular rate/rhythm, normal heart sounds Gastrointestinal/Abdominal Exam: soft, No tenderness, No distention Back Exam: normal inspection, normal range of motion Extremity Exam: normal inspection, normal range of motion, pelvis stable Mental Status Exam: alert, oriented x 3, cooperative sewer pipe layer Exam: normal speech, PERRL, No facial droop Coordination/Gait Exam: normal finger to nose, normal cerebellar function Motor/Sensory Exam: no motor deficit, no sensory deficit DTR Exam: bicep (R): 2+, bicep (L): 2+, tricep (R): 2+, tricep (L): 2+, knee (R): 2+, knee (L): 2+, ankle (R): 2+, ankle (L): 2+ Skin Exam: normal color, warm, dry, No rash SpO2 Interpretation: normal SpO2: 98 O2 Delivery: Room Air - Course Nursing assessment & vital signs reviewed: Yes - CT Exams Head CT Interpretation: Tele-radiologist Report Cervical Spine CT Interpretation: Tele-radiologist Report Ordered Tests: Active Orders 24 hr Category Date Time Status IV Insertion STAT Care 02/25/24 23:09 Active CERVICAL SPINE WO CONTRAST [CT] Routine Exams 02/25/24 23:01 Completed HEAD WITHOUT CONTRAST [CT] Stat Exams 02/25/24 22:52 Completed CBC W DIFF Stat Lab 02/25/24 23:28 Completed CMP Stat Lab 02/25/24 23:28 Completed Erythrocyte Sedimentation Rate Stat Lab 02/25/24 23:28 Completed Lab/Rad Data: Laboratory Result Diagrams 02/25/24 23:28 02/25/24 23:28 Laboratory Results 02/25/24 02/25/24 Range/Units 23:28 23:28 WBC 5.0 (3.98-10.04) x10^3/uL RBC 3.88 L (3.93-5.22) x10^6/uL Hgb 11.2 (11.2-15.7) g/dL Hct 34.5 (34.1-44.9) % MCV 88.9 (79.4-94.8) fL MCH 28.9 (25.6-32.2) pg MCHC 32.5 (32.2-35.5) g/dL RDW 14.8 H (11.7-14.4) % Plt Count 229 (182-369) x10^3/uL MPV 9.9 (9.4-12.3) fL Gran % 67.0 (34.0-71.1) % Immature Gran % (Auto) 0.2 (0.001-0.429) % Nucleat RBC Rel Count 0.0 (0.00-0.2) % Eos # (Auto) 0.11 (0.04-0.36) x10^3/uL Immature Gran # (Auto) 0.01 (0.001-0.031) x10^3u/L Absolute Lymphs (auto) 1.00 L (1.18-3.74) x10^3/uL Absolute Monos (auto) 0.51 (0.24-0.86) x10^3/uL Absolute Nucleated RBC 0.00 (0.00-0.012) x10^3u/L Lymphocytes % 20.0 (19.3-51.7) % Monocytes % 10.2 (4.7-12.5) % Eosinophils % 2.2 (0.7-5.8) % Basophils % 0.4 (0.1-1.2) % Absolute Granulocytes 3.36 (1.56-6.13) x10^3/uL Basophils # 0.02 (0.01-0.08) x10^3/uL ESR 39 H (0-20) mm/hr Sodium 140 (135-145) mmol/L Potassium 3.3 L (3.5-5.1) mmol/L Chloride 102 (98-107) mmol/L Carbon Dioxide 28 (22-30) mmol/L Anion Gap 12.9 (5-15) MEQ/L BUN 14 (7-17) mg/dL Creatinine 0.89 (0.52-1.04) mg/dL Estimated GFR 69.7 ML/MIN Glucose 132 H (74-106) mg/dL Calcium 9.2 (8.4-10.2) mg/dL Total Bilirubin 0.90 (0.2-1.3) mg/dL AST 41 H (14-36) U/L ALT 25 (0-35) U/L Alkaline Phosphatase 175 H (38-126) U/L Serum Total Protein 7.4 (6.3-8.2) g/dL Albumin 4.0 (3.5-5.0) g/dL CLINICAL HISTORY: [facility] COMPARISON: 08 feb 2024. TECHNIQUE: Multiple axial images are obtained from the skull base to the vertex without contrast. CT scan was performed according to ALARA (as low as reasonably achievable). FINDINGS: There is cerebral atrophy. No evidence of space occupying lesion, hemorrhage, edema, mass effect, midline shift, extra axial collection, or hydrocephalus is noted. Basal cisterns are symmetric and normal in size and configuration. There are scattered periventricular hypodensities as can be seen with chronic microvascular ischemic changes. The bonilla-white matter differentiation is preserved. Visualized paranasal sinuses and mastoid air cells are well aerated. Orbital contents are within normal limits. Bony structures are intact. IMPRESSION: 1. No evidence of acute intracranial abnormality is demonstrated. 2. Chronic microvascular ischemic changes. 3. Cerebral atrophy. No other new interval changes since prior study. PatientID: [id number] Patient Name: RENÉE SMART Exam Date: 02/25/2024 Procedure: HEAD WITH LINICAL HISTORY: FREQ FALLS- PAST NECK FX''S COMPARISON: . TECHNIQUE: Computed tomography of the cervical spine performed without intravenous contrast. Contiguous axial images were obtained from the skull base to T2, with sagittal and coronal reformatted images reconstructed from the axial data. CT scan was performed according to ALARA (as low as reasonable achievable). FINDINGS: Comminuted fracture is noted involving odontoid process of C2 vertebra extending right lateral mass and body. Displaced fracture is also noted involving right lateral lamina and spinous process of C2 vertebra.-Alverto and D'Nate classification type III. The normal cervical lordotic curvature is lost due to muscle spasm. Degenerative changes involving cervical spine in the form of multilevel marginal osteophytes, disc space reduction and facetal arthrosis Posterior uncovertebral arthrosis is noted at C5-C6 and C6-C7 levels, which indenting ventral thecal sac and causes bilateral neuroforaminal narrowing. Cervical vertebral bodies are normal in height and alignment, with no evidence of fracture or subluxation. Lateral masses of C1 are symmetrical, and the dens is intact. Prevertebral soft tissues are not widened. The remaining suprahyoid and infrahyoid soft tissues in the neck are unremarkable. Thyroid gland appears unremarkable. - Progress Progress: unchanged Counseled pt/family regarding: lab results, diagnosis, need for follow-up, rad results Medical Desision Making - Independent Historian Additional History obtained from: Family - Diagnostic Testing Radiological Interpretation: Teleradiologist Report - Risk of complications Low Risk: Low risk of morbidity from additional dx testing or treatment - Departure Departure Disposition: Home Clinical Impression: Headache due to injury of head and neck Fall with significant injury Qualifiers: Encounter type: sequela Qualified Code(s): W19.XXXS - Unspecified fall, sequela Condition: Stable Critical Care Time: No Referrals: EKATERINA WALL MD [Primary Care Provider] - Follow up/PCP as directed Instructions: Headache, Adult (DC) Additional Instructions: Discharge/Care Plan RENÉE SMART was seen on 02/26/24 in the Emergency Room. The patient was counseled regarding Diagnosis,Lab results, Imaging studies, need for follow up and when to return to the Emergency Room. Prescriptions given: Discharge Note I have spoken with the patient and/or caregivers. I have explained the patient's condition, diagnosis and treatment plan based on the information available to me at this time. I have answered the patient's and/or caregiver's questions and addressed any concerns. The patient and/or caregivers have as good understanding of the patient's diagnosis, condition and treatment plan as can be expected at this point. The vital signs have been stable. The patient's condition is stable and appropriate for discharge from the emergency department. The patient will pursue further outpatient evaluation with the primary care physician or other designated or consulting physician as outlined in the discharge instructions. The patient and/or caregivers are agreeable to this plan of care and follow-up instructions have been explained in detail. The patient and/or caregivers have received these instruction. The patient/and or caregivers are aware that any significant change in condition or worsening of symptoms should prompt an immediate return to this or the closest emergency department or call 911. RENÉE SMART was seen on 02/26/24 n the Emergency Room. At that time you were treated for an emergent condition, during your visit Laboratory, Radiology and/or other procedures may have been ordered. It is very important that you follow-up with your Primary Care Physician EKATERINA WALL within the next 24-48 hours to review your Emergency Room visit and the final results of testing that was ordered. Some test results such as Urine Cultures, Blood Cultures, and other cultures if ordered will not be finalized for 24-48 hours. If you do not have a Primary Care Provider please call the medical records department at [phone] ext [phone] to obtain a copy of your results or you may sign into our patient portal to obtain these results by visiting us @ [email or web address] and completing the following steps: 1. Click on the Patient Portal link 2. Click the Patient Self Enrollment Link to complete the enrollment form and entering your 3. Once the enrollment form is completed you will receive an email with a temporary ID and password at the email address you provided. 4. Next choose a user name and password. Your user name must be at least 4 characters long and your password must be at least 4 characters long. 5. Choose a security question from the list and provide your answer to the question. If you already have signed into the Health Portal you may access your Health Care Information 03/11 by the following steps: 1. Login to our website @ [email or web address] 2. Enter your original user name and password. FAQS The [facility] Portal is an online tool that contains your Lab Results, Radiology Reports, Visit History, Discharge Instructions and Health Summary Lab and Radiology Results will not be available for 72 hours on the portal. The Portal is a secure site, passwords are encryted and URLs are re-written so they cannot be copied and pasted. You and authorized family members are the only ones who can access your Portal. Also there is a timeout feature that protects your information if you leave the Portal page open. If you have technical difficulty please use the Contact Us link on the page this will allow you to submit any questions you have regarding the Portal or you may contact the Medical Record Department at [phone] ext [phone].
[2024-02-25 23:36] LABS: Erythrocyte Sedimentation Rate 39 mm/hr (0-20)
--- NOTE | 2024-02-25 23:36 | XRAY ---
CLINICAL HISTORY: [facility] COMPARISON: 08 feb 2024. TECHNIQUE: Multiple axial images are obtained from the skull base to the vertex without contrast. CT scan was performed according to ALARA (as low as reasonably achievable). FINDINGS: There is cerebral atrophy. No evidence of space occupying lesion, hemorrhage, edema, mass effect, midline shift, extra axial collection, or hydrocephalus is noted. Basal cisterns are symmetric and normal in size and configuration. There are scattered periventricular hypodensities as can be seen with chronic microvascular ischemic changes. The bonilla-white matter differentiation is preserved. Visualized paranasal sinuses and mastoid air cells are well aerated. Orbital contents are within normal limits. Bony structures are intact. IMPRESSION: 1. No evidence of acute intracranial abnormality is demonstrated. 2. Chronic microvascular ischemic changes. 3. Cerebral atrophy. No other new interval changes since prior study. Electronically Signed by: Ajit Russell MD. (02/25/2024 23:32:36 EST)
[2024-02-25 23:43] LABS: ANION GAP 12.9 MEQ/L (5-15); BILIRUBIN,TOTAL 0.9 mg/dL (0.2-1.3); Calcium 9.2 mg/dL (8.4-10.2); Creatinine 1 0.89 mg/dL (0.52-1.04); EST GLOMERULAR FILTRATION RATE 69.7 ML/MIN; Potassium 3.3 mmol/L (3.5-5.1); Total Protein 7.4 g/dL (6.3-8.2)
--- NOTE | 2024-02-26 00:31 | XRAY ---
CLINICAL HISTORY: FREQ FALLS- PAST NECK FX''S COMPARISON: . TECHNIQUE: Computed tomography of the cervical spine performed without intravenous contrast. Contiguous axial images were obtained from the skull base to T2, with sagittal and coronal reformatted images reconstructed from the axial data. CT scan was performed according to ALARA (as low as reasonable achievable). FINDINGS: Comminuted fracture is noted involving odontoid process of C2 vertebra extending right lateral mass and body. Displaced fracture is also noted involving right lateral lamina and spinous process of C2 vertebra.-Alverto and D'Nate classification type III. The normal cervical lordotic curvature is lost due to muscle spasm. Degenerative changes involving cervical spine in the form of multilevel marginal osteophytes, disc space reduction and facetal arthrosis Posterior uncovertebral arthrosis is noted at C5-C6 and C6-C7 levels, which indenting ventral thecal sac and causes bilateral neuroforaminal narrowing. Cervical vertebral bodies are normal in height and alignment, with no evidence of fracture or subluxation. Lateral masses of C1 are symmetrical, and the dens is intact. Prevertebral soft tissues are not widened. The remaining suprahyoid and infrahyoid soft tissues in the neck are unremarkable. Thyroid gland appears unremarkable. IMPRESSION: Comminuted fracture is noted involving odontoid process of C2 vertebra extending right lateral mass and body. -Alverto and D'Nate classification type III.- same as prior. Displaced fracture is also noted involving right lateral lamina and spinous process of C2 vertebra.-same as prior. Cervical spondylosis. -same. Electronically Signed by: Ajit Russell MD. (02/26/2024 00:26:37 EST)
[2024-02-26 00:38] VITALS: BP 129/72; RESP 13
== END 2024-02-26 00:49 | disposition home or self-care (01) ==
LOC: ED 22:38
DX: S09.90XA Unspecified injury of head, initial encounter (principal); R51.9 Headache, unspecified; W19.XXXA Unspecified fall, initial encounter; Z91.81 History of falling; Z79.899 Other long term (current) drug therapy; Z79.01 Long term (current) use of anticoagulants
CPT/HCPCS: 36415; 70450; 72125; 80053; 85025; 85652; 99283; 99284

== ENCOUNTER 2024-04-28 23:00 | Observation (INO) | payer MEDICARE ==
[2024-04-29] MEDS ORDERED: SUBLIMAZE 100 MCG/2 ML ONE (00:02)
[2024-04-29] MEDS: SUBLIMAZE 100 MCG/2 ML IM ONE (00:03)
--- NOTE | 2024-04-29 00:23 | ERPHSYRPT ---
- History of Present Illness Time Seen by Provider: 04/28/24 23:40 Source: patient Exam Limitations: no limitations Patient Subjective Stated Complaint: pt states she was going to the bathroom and fell. pt states that she heard a pop in her rt shoulder Triage Nursing Assessment: pt came into the er via wheelchair; pt is axo x4; c/o rt shoulder injury; pt states 10/10 pain to rt shoulder; tenderness to rt shoulder; pt states numbness to rt fingers; decreased ROM to RUE; strong rt radial pulse; vitals wnl; no respiratory distress present; vitals wnl Physician History: 68 years old female with multiple medical problems including atrial fibrillation on Eliquis, hypertension, hypothyroidism, GERD, anxiety, recurrent falls with multiple broken bones presented in the ER after she was going to the bathroom, lost her balance and landed on her right shoulder around 9 PM tonight. Patient reports moderate to severe sharp shooting pain in the right shoulder with movements, reports having some numbness earlier in the hand which is improved now. Did not hit her head, no loss of consciousness. Denies any chest pain p alpitations or shortness of breath. No abdominal or hip pain. Anywhere else. Allergies/Adverse Reactions: No Known Drug Allergies Allergy (Verified 04/28/24 23:09) Home Medications: Apixaban [Eliquis] 5 mg PO BID 02/08/24 [History] Bupropion HCl 150 mg Sr [Wellbutrin SR 150 MG] 150 mg PO DAILY 02/08/24 [History] Duloxetine HCl 60 mg PO DAILY 02/08/24 [History] Famotidine 40 mg PO DAILY 02/08/24 [History] Gabapentin 400 mg PO QID 02/08/24 [History] Hydrochlorothiazide 25 mg [hydroDIURIL 25 MG] 25 mg PO DAILY 02/08/24 [History] Levothyroxine Sodium 50 mcg PO DAILY 02/08/24 [History] Meclizine HCl 25 mg [Antivert 25 mg] 25 mg PO TID 02/08/24 [History] Mirtazapine 15 mg PO HS 02/08/24 [History] Primidone 50 MG [Mysoline 50Mg] 50 mg PO TID 02/08/24 [History] Sertraline HCl [Zoloft] 25 mg PO DAILY 02/08/24 [History] Simvastatin 80 mg PO DAILY 02/08/24 [History] Sucralfate 1 gm [Carafate 1 GM] 1 g PO QID 02/08/24 [History] Tirzepatide [Mounjaro] 2.5 mg SQ WEEKLY 02/08/24 [History] Hx Tetanus, Diphtheria Vaccination/Date Given: Yes Hx Influenza Vaccination/Date Given: Yes Hx Pneumococcal Vaccination/Date Given: Yes Travel Risk - International Travel Have you traveled outside of the country in past 3 weeks: No - Emerging Infectious Disease Are you exhibiting symptoms associated with any current EIDs: No - Review of Systems Constitutional: No Symptoms Eyes: No Symptoms Ears, Nose, & Throat: No Symptoms Respiratory: No Symptoms Cardiac: No Symptoms Abdominal/Gastrointestinal: No Symptoms Genitourinary Symptoms: No Symptoms Musculoskeletal: Arthralgias, Fall, Injury, Joint Pain Skin: No Symptoms Neurological: No Symptoms Psychological: Anxiety Endocrine: No Symptoms Hematologic/Lymphatic: Easy Bleeding Immunological/Allergic: No Symptoms - Past Medical History Pertinent Past Medical History: Yes Neurological History: Migraines Cardiac History: Arrhythmia Respiratory History: Asthma, COPD Endocrine Medical History: Diabetes Type II, Hypothyroidism, Other Musculoskeletal History: Fractures, Osteoarthritis, Osteoporosis GI Medical History: Gallbladder Disease Other Medical History: LIVER SURGERY. NEEDS CATARACT SURGERY, HAS TO WAIT UNTIL NECK IS HEALED. B ANKLES WITH HARDWARE, RODS IN B TIBIAS DUE TO OSTEOPOROSIS. - Past Surgical History Past Surgical History: Yes Gastrointestinal: Appendectomy, Cholecystectomy Musculoskeletal: Other Female Surgical History: Hysterectomy, Section, Tubal Ligation Other Surgical History: bilateral ankles - Social History Smoking Status: Former smoker Exposure to second hand smoke: No Drug Use: other - Social Determinants of Health Will the patient participate in the screening: Yes Do you worry about a steady place to live?: No Do you have any problems with any of the following?: No known problems In the past 12 months,have you had to go without utilities?: No Transportation Issues: No Has anyone in your support network made you feel unsafe?: No Have you or anyone in your house had to go without enough: No - Nursing Vital Signs Nursing Vital Signs: Initial Vital Signs Pulse Rate 79 04/28/24 23:08 Blood Pressure 138/84 04/28/24 23:08 O2 Sat by Pulse Oximetry 99 04/28/24 23:08 Pain Scale Pain Intensity 7 - Vijay Coma Score Best Eye Response (Vijay): (4) open spontaneously Best Verbal Response (Vijay): (5) oriented Best Motor Response (Vijay): (6) obeys commands [place] Total: 15 - Physical Exam General Appearance: no apparent distress, alert Head Injury: no evidence of injury Eye Exam: PERRL/EOMI, eyes nml inspection ENT Exam: airway nml, No evidence of ENT injury, No dental injury Neck Exam: supple, trachea midline, full range of motion, normal alignment, normal inspection Respiratory/Chest Exam: normal breath sounds, No chest tenderness, No respiratory distress Cardiovascular Exam: normal heart sounds, normal peripheral pulses, irregular Gastrointestinal Exam: soft, normal bowel sounds, No tenderness Back Exam: normal inspection Extremity Exam: deformities, joint swelling, limited range of motion (Right shoulder), bony point tenderness, tenderness Neurologic Exam: alert, oriented x 3, cooperative, intensive care medicine specialist II-XII nml as tested, sensation nml Skin Exam: normal color SpO2 Interpretation: normal SpO2: 98 O2 Delivery: Room Air - Course EKG Interpreted by Me: RATE (86), A-fib, NORMAL AXIS, NORMAL INTERVALS, Other (Nonspecific T wave changes) Ordered Tests: Active Orders 24 hr Category Date Time Status Bedrest ROUTINE Activity 04/29/24 03:33 Active Up With Assistance ROUTINE Activity 04/29/24 03:33 Active Call Admit Doctor for Orders ON ADMISSION Care 04/29/24 03:33 Active Code Status Order ROUTINE Care 04/29/24 03:33 Active EKG-ER Only STAT Care 04/29/24 00:18 Completed Fall Protocol ROUTINE Care 04/29/24 03:33 Active IV Insertion STAT Care 04/29/24 00:18 Completed Neuro Checks Q4H Care 04/29/24 03:[address] in Observation ROUTINE Care 04/29/24 03:33 Active HUMERUS Stat Exams 04/28/24 23:40 Taken SHOULDER Stat Exams 04/28/24 23:40 Taken UPPER EXTREMITY W/O CONTRAST [CT] Stat Exams 04/29/24 00:54 Completed CBC W DIFF Stat Lab 04/29/24 00:28 Completed CMP Stat Lab 04/29/24 00:28 Completed UA W/RFX UR CULTURE Stat Lab 04/29/24 00:18 Ordered Pulse Oximetry CONTINUOUS RT 04/29/24 03:33 Active Transfer Order Routine Transfer 04/29/24 Completed Medication Summary Discontinued Medications Generic Name Dose Route Start Last Admin Trade Name Mango PRN Reason Stop Dose Admin Fentanyl Citrate 50 mcg 04/28/24 23:59 04/29/24 00:03 Fentanyl Citrate 100 Mcg/2 Ml* Vial IM 04/29/24 00:00 50 mcg STAT ONE Administration Fentanyl Citrate Confirm 04/29/24 00:02 Fentanyl Citrate 100 Mcg/2 Ml* Vial Administered 04/29/24 00:03 Dose 100 mcg .ROUTE .STK-MED ONE Hydromorphone HCl Confirm 04/29/24 02:48 Hydromorphone 1 Mg/1ml Inj Administered 04/29/24 02:49 Dose 1 mg .ROUTE .STK-MED ONE Lab/Rad Data: Laboratory Result Diagrams 04/29/24 00:28 04/29/24 00:28 Laboratory Results 04/29/24 04/29/24 Range/Units 00:28 00:28 WBC 11.6 H (3.98-10.04) x10^3/uL RBC 4.10 (3.93-5.22) x10^6/uL Hgb 11.3 (11.2-15.7) g/dL Hct 35.4 (34.1-44.9) % MCV 86.3 (79.4-94.8) fL MCH 27.6 (25.6-32.2) pg MCHC 31.9 L (32.2-35.5) g/dL RDW 13.2 (11.7-14.4) % Plt Count 183 (182-369) x10^3/uL MPV 10.3 (9.4-12.3) fL Gran % 85.6 H (34.0-71.1) % Immature Gran % (Auto) 0.6 H (0.001-0.429) % Nucleat RBC Rel Count 0.0 (0.00-0.2) % Eos # (Auto) 0.04 (0.04-0.36) x10^3/uL Immature Gran # (Auto) 0.07 H (0.001-0.031) x10^3u/L Absolute Lymphs (auto) 0.88 L (1.18-3.74) x10^3/uL Absolute Monos (auto) 0.66 (0.24-0.86) x10^3/uL Absolute Nucleated RBC 0.00 (0.00-0.012) x10^3u/L Lymphocytes % 7.6 L (19.3-51.7) % Monocytes % 5.7 (4.7-12.5) % Eosinophils % 0.3 L (0.7-5.8) % Basophils % 0.2 (0.1-1.2) % Absolute Granulocytes 9.92 H (1.56-6.13) x10^3/uL Basophils # 0.02 (0.01-0.08) x10^3/uL Sodium 136 (135-145) mmol/L Potassium 3.8 (3.5-5.1) mmol/L Chloride 100 (98-107) mmol/L Carbon Dioxide 29 (22-30) mmol/L Anion Gap 11.4 (5-15) MEQ/L BUN 14 (7-17) mg/dL Creatinine 1.19 H (0.52-1.04) mg/dL Estimated GFR 49.2 ML/MIN Glucose 160 H (74-106) mg/dL Calcium 9.2 (8.4-10.2) mg/dL Total Bilirubin 1.30 (0.2-1.3) mg/dL AST 36 (14-36) U/L ALT 20 (0-35) U/L Alkaline Phosphatase 100 (38-126) U/L Serum Total Protein 7.5 (6.3-8.2) g/dL Albumin 4.1 (3.5-5.0) g/dL - Progress Progress: improved Progress Note: 04/29/24 00:21 68 years old is evaluated in the ER for ground-level fall with injury to the right shoulder. Patient has issues with her balance and has repeated falls. No chest pain palpitations or shortness of breath before or after the fall. Did not hit her head. Nonfocal neuroexam. Has intact distal neurovascular and right upper extremity. X-rays showed fracture surgical neck/upper humerus with displacement. She is given symptomatic treatment for pain, feeling a little better on reevaluation. Discussed with Dr. Werner who has seen x-rays, recommended admission to hospitalist service and obtaining CT shoulder without contrast for further evaluation. We will obtain baseline labs, discussed the results of x-rays and recommendations of orthopedic surgery with patient and family and plan of admission which they understand and agree. Will discuss with hospitalist and patient would be admitted. 04/29/24 03:29 Baseline lab work fairly unremarkable. Discussed with hospitalist service and patient is excepted for admission. Discussed with Dr.: Other (Dr. Werner orthopedic surgery and Dr. Felton hospitalist) Counseled pt/family regarding: lab results, diagnosis, need for follow-up, rad results Medical Desision Making - Independent Historian Additional History obtained from: Child - Discussion of managment Care discussed with:: specialist (Dr. Werner orthopedics/Dr. Felton hospitalist) Reviewed:: Test results Agreed on:: Treatment plan, place in obs Will see patient: in hospital - Diagnostic Testing Diagnostic test were ordered, analyzed, and reviewed by me: Yes Radiological Interpretation: Interpreted by me, Reviewed by me, Teleradiologist Report - Risk of complications The pt has a mod risk of morbidity or mortality based on: Need for prescription drug management, Need for minor surgical intervention in patient with know risk factors The pt has a high risk of morbidity or mortality based on: Decision regarding hospitilization or escalation of hosp level of care - Departure Departure Disposition: Observation Clinical Impression: Fracture, humerus closed, Fall Condition: Stable Critical Care Time: No
[2024-04-29 00:28] LABS: Absolute Neutrophil Ct (ANC) 9.92 x10^3/uL (1.56-6.13); BASOPHIL % 0.2 % (0.1-1.2); Basophil (Absolute #) 0.02 x10^3/uL (0.01-0.08); Eosinophil % 0.3 % (0.7-5.8); Eosinophil (Absolute #) 0.04 x10^3/uL (0.04-0.36); Hematocrit 35.4 % (34.1-44.9); Hemoglobin 11.3 g/dL (11.2-15.7); IMMATURE GRAN # 0.07 x10^3u/L (0.001-0.031); IMMATURE GRAN % 0.6 % (0.001-0.429); Lymphocyte (Absolute #) 0.88 x10^3/uL (1.18-3.74); Lymphocytes % 7.6 % (19.3-51.7); Mean Cell Volume 86.3 fL (79.4-94.8); Mean Corpuscular Hemoglobin 27.6 pg (25.6-32.2); Mean Corpuscular Hgb Concent. 31.9 g/dL (32.2-35.5); Mean Platelet Volume 10.3 fL (9.4-12.3); Monocyte (Absolute #) 0.66 x10^3/uL (0.24-0.86); Monocytes % 5.7 % (4.7-12.5); Neutrophil % 85.6 % (34.0-71.1); Platelet Count 183 x10^3/uL (182-369); Red Cell Distribution Width 13.2 % (11.7-14.4); White Blood Count 11.6 x10^3/uL (3.98-10.04)
[2024-04-29 00:40] LABS: ALBUMIN 4.1 g/dL (3.5-5.0); ANION GAP 11.4 MEQ/L (5-15); BILIRUBIN,TOTAL 1.3 mg/dL (0.2-1.3); Calcium 9.2 mg/dL (8.4-10.2); Creatinine 1 1.19 mg/dL (0.52-1.04); EST GLOMERULAR FILTRATION RATE 49.2 ML/MIN; Potassium 3.8 mmol/L (3.5-5.1); Total Protein 7.5 g/dL (6.3-8.2)
--- NOTE | 2024-04-29 02:40 | XRAY ---
CLINICAL HISTORY: right shoulder /humerus fx COMPARISON: None. TECHNIQUE: Contiguous axial CT images of right shoulder were obtained without intravenous contrast. Coronal and sagittal reconstructions were likewise performed and indicated to increase the sensitivity for detecting clinically relevant pathology. CT scan was performed according to ALARA (as low as reasonably achievable). FINDINGS: Comminuted, partially displaced, non-articular, impacted fracture of the surgical neck of the right humerus is noted. The fracture line is seen extending into the humeral head. Mild anterior angulation of the distal fracture fragment is seen. Multiple small bony fragments are noted in the adjacent periarticular, periosseous soft tissue. Significant periosseous soft tissue edema is seen. Right deltoid muscle appears bulky. Suspicious well defined hypodensity is noted within the lateral fibers of the deltoid muscle. Possibility of tear/hemorrhage. Rest of the bones and soft tissues appear normal. No destructive osseous lesion. Fractures of right 3rd to 6th ribs seen- possibly old healed fractures. IMPRESSION: 1. Comminuted, partially displaced, non-articular, impacted fracture of the surgical neck of the right humerus is noted. The fracture line is seen extending into the humeral head. 2. Mild anterior angulation of the distal fracture fragment is seen. 3. Multiple small bony fragments are noted in the adjacent periarticular, periosseous soft tissue. 4. Significant periosseous soft tissue edema is seen. 5. Right deltoid muscle appears bulky. Suspicious well defined hypodensity is noted within the lateral fibers of the deltoid muscle. Possibility of tear/hemorrhage. 6. Fractures of right 3rd to 6th ribs seen- possibly old healed fractures. Electronically Signed by: Ajit Russell MD. (04/29/2024 02:27:51 EST)
[2024-04-29] MEDS ORDERED: Hydromorphone 1 mg/ml Injection ONE (02:48)
--- NOTE | 2024-04-29 04:55 | PCM.HP ---
History of Present Illness - Chief Complaint Chief Complaint: shoulder fx Date: 04/29/24 History of Present Illness: Ms. SMART is a 68 year old female with a past medical history significant for atrial fibrillation, hypertension, brittle bone disease with neck fracture, rib fractures, leg fractures, and imbalance leading to multiple falls who presents while walking to her bathroom when she lost her balance and fell onto her right side. She heard a pop on her right shoulder and developed severe pain, 10/10 in severity. No dizziness but did feel some lightheadedness prior to her fall. No chest pain, palpitations, or shortness of breath. CT scan demonstrated com minuted fracture in her R humerus neck extending into the head. Some numbness in her R elbow, but has normalized. No loss of feeling or sensation to her wrist or fingers. No fever/chills. No nausea, vomiting or diarrhea. No dysuria, hematuria or urinary urgency. - Review of Systems Constitutional: No Fever, No Chills Eyes: No Vision Changes Ears, Nose, & Throat: No Sinus Drainage Respiratory: No Cough, No Orthopnea, No Short Of Breath Cardiac: No Chest Pain, No Edema, No Palpitations Abdominal/Gastrointestinal: No Abdominal Pain, No Nausea, No Vomiting, No Diarrhea Genitourinary Symptoms: No Dysuria, No Frequency Musculoskeletal: Fall, Injury Skin: No Rash Neurological: No Dizziness, No Headache Psychological: No Suicidal Ideations Endocrine: No Polyuria, No Polydipsia Medications & Allergies Home Medications: Home Medication List Apixaban [Eliquis] 5 mg PO BID 02/08/24 [History Confirmed 02/08/24] Bupropion HCl 150 mg Sr [Wellbutrin SR 150 MG] 150 mg PO DAILY 02/08/24 [History Confirmed 02/08/24] Duloxetine HCl 60 mg PO DAILY 02/08/24 [History Confirmed 02/08/24] Famotidine 40 mg PO DAILY 02/08/24 [History Confirmed 02/08/24] Gabapentin 400 mg PO QID 02/08/24 [History Confirmed 02/08/24] Hydrochlorothiazide 25 mg [hydroDIURIL 25 MG] 25 mg PO DAILY 02/08/24 [History Confirmed 02/08/24] Levothyroxine Sodium 50 mcg PO DAILY 02/08/24 [History Confirmed 02/08/24] Meclizine HCl 25 mg [Antivert 25 mg] 25 mg PO TID 02/08/24 [History Confirmed 02/08/24] Mirtazapine 15 mg PO HS 02/08/24 [History Confirmed 02/08/24] Primidone 50 MG [Mysoline 50Mg] 50 mg PO TID 02/08/24 [History Confirmed 02/08/24] Sertraline HCl [Zoloft] 25 mg PO DAILY 02/08/24 [History Confirmed 02/08/24] Simvastatin 80 mg PO DAILY 02/08/24 [History Confirmed 02/08/24] Sucralfate 1 gm [Carafate 1 GM] 1 g PO QID 02/08/24 [History Confirmed 02/08/24] Tirzepatide [Mounjaro] 2.5 mg SQ WEEKLY 02/08/24 [History Confirmed 02/08/24] Allergies/Adverse Reactions: Allergies Allergy/AdvReac Type Severity Reaction Status Date / Time No Known Drug Allergies Allergy Verified 04/28/24 23:09 - Past Medical History Past Medical History: Yes Neurological History: Migraines ENT History: No Pertinent History Cardiac History: Arrhythmia Respiratory History: Asthma, COPD Endocrine Medical History: Diabetes Type II, Hypothyroidism, Other Musculoskelatal History: Fractures, Osteoarthritis, Osteoporosis GI Medical History: Gallbladder Disease History: No Pertinent History Reproductive Disorders: No Pertinent History Comment: LIVER SURGERY. NEEDS CATARACT SURGERY, HAS TO WAIT UNTIL NECK IS HEALED. B ANKLES WITH HARDWARE, RODS IN B TIBIAS DUE TO OSTEOPOROSIS. - Past Surgical History Past Surgical History: Yes Neuro Surgical History: No Pertinent History Cardiac History: No Pertinent History Respiratory Surgery: No Pertinent History GI Surgical History: Appendectomy, Cholecystectomy Genitourinary Surgical Hx: No Pertinent History Musculskeletal Surgical Hx: Other Female Surgical History: Hysterectomy, Section, Tubal Ligation Other Surgical History: bilateral ankles - Social History Smoking Status: Never smoker Exposure to second hand smoke: No Alcohol: Rarely Drug Use: other - Social Determinants of Health Will the patient participate in the screening: Yes Do you worry about a steady place to live?: No Do you have any problems with any of the following?: No known problems In the past 12 months,have you had to go without utilities?: No Have you or anyone in your house had to go without enough: No Transportation Issues: No Has anyone in your support network made you feel unsafe?: No Does the patient want assistance with any of the above?: No - Physical Exam Vital Signs: Vital Signs - 24 hr Temp Pulse Resp BP BP Pulse Ox 04/29/24 04:18 97.5 F 89 18 114/60 96 04/29/24 04:00 97.5 F 89 18 114/60 96 04/29/24 03:44 98 04/29/24 03:33 96 04/29/24 03:30 81 102/80 94 L 04/29/24 03:00 79 102/70 93 L 04/29/24 02:30 77 109/78 94 L 04/29/24 00:30 84 117/79 96 04/29/24 00:00 90 22 129/87 100 04/28/24 23:48 83 141/87 98 04/28/24 23:10 97.8 F 80 18 138/84 95 04/28/24 23:08 79 138/84 99 General Appearance: mild distress, alert Neurologic Exam: No slurred speech, No aphasia Ears, Nose, Throat Exam: dry mucous membranes Neck Exam: supple Respiratory Exam: No respiratory distress Cardiovascular Exam: regular rate/rhythm, irregular Gastrointestinal/Abdomen Exam: soft Extremity Exam: No pedal edema, No swelling Skin Exam: normal color, No rash Results - Labs Lab/Micro Results: Lab Results-Last 24 Hours 04/29/24 04/29/24 Range/Units 00:28 00:28 WBC 11.6 H (3.98-10.04) x10^3/uL RBC 4.10 (3.93-5.22) x10^6/uL Hgb 11.3 (11.2-15.7) g/dL Hct 35.4 (34.1-44.9) % MCV 86.3 (79.4-94.8) fL MCH 27.6 (25.6-32.2) pg MCHC 31.9 L (32.2-35.5) g/dL RDW 13.2 (11.7-14.4) % Plt Count 183 (182-369) x10^3/uL MPV 10.3 (9.4-12.3) fL Gran % 85.6 H (34.0-71.1) % Immature Gran % (Auto) 0.6 H (0.001-0.429) % Nucleat RBC Rel Count 0.0 (0.00-0.2) % Eos # (Auto) 0.04 (0.04-0.36) x10^3/uL Immature Gran # (Auto) 0.07 H (0.001-0.031) x10^3u/L Absolute Lymphs (auto) 0.88 L (1.18-3.74) x10^3/uL Absolute Monos (auto) 0.66 (0.24-0.86) x10^3/uL Absolute Nucleated RBC 0.00 (0.00-0.012) x10^3u/L Lymphocytes % 7.6 L (19.3-51.7) % Monocytes % 5.7 (4.7-12.5) % Eosinophils % 0.3 L (0.7-5.8) % Basophils % 0.2 (0.1-1.2) % Absolute Granulocytes 9.92 H (1.56-6.13) x10^3/uL Basophils # 0.02 (0.01-0.08) x10^3/uL Sodium 136 (135-145) mmol/L Potassium 3.8 (3.5-5.1) mmol/L Chloride 100 (98-107) mmol/L Carbon Dioxide 29 (22-30) mmol/L Anion Gap 11.4 (5-15) MEQ/L BUN 14 (7-17) mg/dL Creatinine 1.19 H (0.52-1.04) mg/dL Estimated GFR 49.2 ML/MIN Glucose 160 H (74-106) mg/dL Calcium 9.2 (8.4-10.2) mg/dL Total Bilirubin 1.30 (0.2-1.3) mg/dL AST 36 (14-36) U/L ALT 20 (0-35) U/L Alkaline Phosphatase 100 (38-126) U/L Serum Total Protein 7.5 (6.3-8.2) g/dL Albumin 4.1 (3.5-5.0) g/dL - Radiology Impressions Radiology Exams & Impressions: Radiology Procedures Category Date Time Status HUMERUS Stat Exams 04/28/24 23:40 Taken SHOULDER Stat Exams 04/28/24 23:40 Taken UPPER EXTREMITY W/O CONTRAST [CT] Stat Exams 04/29/24 00:54 Completed Assessment/Plan (1) Fracture, humerus closed Current Visit: Yes Status: Acute Qualifiers: Encounter type: initial encounter Humerus Location: surgical neck Fracture morphology: unspecified fracture morphology Fracture alignment: nondisplaced Laterality: right Qualified Code(s): S42.214A - Unspecified nondisplaced fracture of surgical neck of right humerus, initial encounter for closed fracture Assessment & Plan: Fall leading to R humeral neck fracture extending into head with underlying brittle bone disease 1. Admit to hospital 2. Orthopedic surgery consult 3. Will keep NPO, hold Eliquis for now 4. DVT/GI prophylaxis 5. Pain control 6. Keep sling for now to maintain stability/immobilization Code(s): S42.309A - UNSP FRACTURE OF SHAFT OF HUMERUS, UNSP ARM, INIT (2) Fall Current Visit: Yes Status: Acute Qualifiers: Encounter type: initial encounter Qualified Code(s): W19.XXXA - Unspecified fall, initial encounter Assessment & Plan: Suspect some orthostatics in the setting of dehydration 1. Keep on telemetry for arrhythmia 2. Check orthostatic bp 3. Fall precautions Code(s): W19.XXXA - UNSPECIFIED FALL, INITIAL ENCOUNTER (3) Acute kidney injury Current Visit: Yes Status: Acute Assessment & Plan: Likely from prerenal azotemia in setting of HCTZ (baseline Cr 0.8) 1. IVFs 2. Hold HCTZ 3. Follow I/Os 4. Watch electrolytes, creatinine closely Code(s): N17.9 - ACUTE KIDNEY FAILURE, UNSPECIFIED (4) Hypertensive chronic kidney disease with stage 1 through stage 4 chronic kidney disease, or unspecified chronic kidney disease Current Visit: Yes Status: Acute Assessment & Plan: Blood pressure under reasonable control 1. Continue bp meds other than HCTZ 2. Monitor bp readings Code(s): I12.9 - HYPERTENSIVE CHRONIC KIDNEY DISEASE W STG 1-4/UNSP CHR KDNY (5) Atrial fibrillation Current Visit: Yes Status: Acute Assessment & Plan: On Eliquis 1. Monitor on telemetry 2. Rate control 3. Hold Eliquis for possible surgery Code(s): I48.91 - UNSPECIFIED ATRIAL FIBRILLATION Telemedicine Encounter - Telemedicine Encounter Telemedicine Encounter: "The entirety of this encounter was performed via Telemedicine" This visit was performed using real-time audio and video connection between my location and thepatients locationwith the assistance of a surrogateat the patients location. Written or verbal consent was obtained from the patient/guardian to perform this visit usingsynchronoustelemedicine technology. Any patient questions regarding the telemedicine interaction were answered.
[2024-04-29] MEDS: Sodium Chloride 0.9% 1000 ML 1,000 ML IV SCH (05:40)
[2024-04-29] MEDS: Hydromorphone 1 mg/ml Injection IV PRN ×2 (05:46→09:31)
--- NOTE | 2024-04-29 08:48 | XRAY ---
Indication: Pain following fall. Comparison: None 3 view right shoulder demonstrates markedly displaced slightly comminuted humeral neck fracture. Minimally depressed acromion relative to clavicle suggesting AC separation. Elsewhere osteopenia, mild AC degenerative changes, multiple old right rib fractures, and minimal/mild multilevel cervical thoracic degenerative spondylosis.
--- NOTE | 2024-04-29 08:48 | XRAY ---
Indication: Pain following fall. Comparison: None 2 view right humerus demonstrates markedly displaced slightly comminuted humeral neck fracture. Minimally depressed acromion relative to clavicle suggesting AC separation. Elsewhere osteopenia, mild AC degenerative changes, multiple old right rib fractures, and minimal/mild multilevel degenerative spondylosis, and mild double curvature thoracolumbar scoliosis.
[2024-04-29] MEDS: SYNTHROID 50 MCG PO SCH (09:31)
[2024-04-29] MEDS: Pepcid 20 MG VIAL IV SCH (09:31)
--- NOTE | 2024-04-29 10:54 | PCM.CONS ---
History of Present Illness - Consult Date of Consultation Date: 04/29/24 Reason for Consult: Right shoulder pain Consulting Provider: KAI YOUSIF MD - [facility] History of Present Illness: is a 68 year old female who presented to the emergency room at [facility] last night with chief complaint right shoulder pain. She has multiple medical problems including atrial fibrillation, hypertension, hypothyroidism, GERD syndrome, anxiety, obesity, recurrent falls, walker dependent, recent cervical spinal fracture. She fell at her home while going to the bathroom last night, lost her balance and landed on right shoulder. 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 In February she had a cervical spinal fracture, details not known currently, states that she has a follow-up appointment with her spinal surgeon next week and has not yet been cleared to remove her neck brace. States that she was hospitalized 5 days at [facility] in [place]. States that she was living in [place] when she had her ankle surgeries, but has moved twice since then. She now lives in the [facility] to be closer to her daughter. Patient lives alone. - Review of Systems Constitutional: Weakness Eyes: No Symptoms Ears, Nose, & Throat: No Symptoms Respiratory: No Symptoms Musculoskeletal: Fall, Injury, Joint Pain Medications & Allergies Home Medications: Home Medication List Apixaban [Eliquis] 5 mg PO BID 02/08/24 [History Confirmed 04/29/24] Bupropion HCl 150 mg Sr [Wellbutrin SR 150 MG] 150 mg PO DAILY 02/08/24 [History Confirmed 04/29/24] Duloxetine HCl 60 mg PO DAILY 02/08/24 [History Confirmed 04/29/24] Famotidine 40 mg PO DAILY 02/08/24 [History Confirmed 04/29/24] Gabapentin 400 mg PO QID 02/08/24 [History Confirmed 04/29/24] Hydrochlorothiazide 25 mg [hydroDIURIL 25 MG] 25 mg PO DAILY 02/08/24 [History Confirmed 04/29/24] Levothyroxine Sodium 50 mcg PO DAILY 02/08/24 [History Confirmed 04/29/24] Meclizine HCl 25 mg [Antivert 25 mg] 25 mg PO TID 02/08/24 [History Confirmed 04/29/24] Mirtazapine 15 mg PO HS 02/08/24 [History Confirmed 04/29/24] Primidone 50 MG [Mysoline 50Mg] 50 mg PO DAILY 02/08/24 [History Confirmed 04/29/24] Simvastatin 80 mg PO DAILY 02/08/24 [History Confirmed 04/29/24] Sucralfate 1 gm [Carafate 1 GM] 1 g PO QID 02/08/24 [History Confirmed 04/29/24] Tirzepatide [Mounjaro] 2.5 mg SQ WEEKLY 02/08/24 [History Confirmed 04/29/24] Allergies/Adverse Reactions: Allergies Allergy/AdvReac Type Severity Reaction Status Date / Time No Known Drug Allergies Allergy Verified 04/28/24 23:09 - Past Medical History Past Medical History: Yes Neurological History: Migraines ENT History: No Pertinent History Cardiac History: Arrhythmia Respiratory History: Asthma, COPD Endocrine Medical History: Diabetes Type II, Hypothyroidism, Other Musculoskelatal History: Fractures, Osteoarthritis, Osteoporosis GI Medical History: Gallbladder Disease History: No Pertinent History Reproductive Disorders: No Pertinent History Comment: LIVER SURGERY. NEEDS CATARACT SURGERY, HAS TO WAIT UNTIL NECK IS HEALED. B ANKLES WITH HARDWARE, RODS IN B TIBIAS DUE TO OSTEOPOROSIS. - Past Surgical History Past Surgical History: Yes Neuro Surgical History: No Pertinent History Cardiac History: No Pertinent History Respiratory Surgery: No Pertinent History GI Surgical History: Appendectomy, Cholecystectomy Genitourinary Surgical Hx: No Pertinent History Musculskeletal Surgical Hx: Other Female Surgical History: Hysterectomy, Section, Tubal Ligation Other Surgical History: bilateral ankles - Social History Smoking Status: Never smoker Exposure to second hand smoke: No Alcohol: Rarely Drug Use: other - Social Determinants of Health Will the patient participate in the screening: Yes Do you worry about a steady place to live?: No Do you have any problems with any of the following?: No known problems In the past 12 months,have you had to go without utilities?: No Have you or anyone in your house had to go without enough: No Transportation Issues: No Has anyone in your support network made you feel unsafe?: No Does the patient want assistance with any of the above?: No - Nursing Vital Signs Nursing Vital Signs: Vital Signs - 24 hr Temp Pulse Resp BP BP Pulse Ox 04/29/24 07:10 97.8 F 84 16 116/65 95 04/29/24 05:23 92 L 04/29/24 04:18 97.5 F 89 18 114/60 96 04/29/24 04:00 97.5 F 89 18 114/60 96 04/29/24 03:44 98 04/29/24 03:33 96 04/29/24 03:30 81 102/80 94 L 04/29/24 03:00 79 102/70 93 L 04/29/24 02:30 77 109/78 94 L 04/29/24 00:30 84 117/79 96 04/29/24 00:00 90 22 129/87 100 04/28/24 23:48 83 141/87 98 04/28/24 23:10 97.8 F 80 18 138/84 95 04/28/24 23:08 79 138/84 99 - Physical Exam General Appearance: no apparent distress, obese Eyes, Ears, Nose, Throat Exam: normal ENT inspection Neck Exam: other (Not currently wearing neck brace, range of motion not tested) Abdominal Exam: non-tender Skin Exam: warm, dry SpO2: 95 - Upper Extremity Shoulder Exam: bone tenderness, limited ROM Elbow/Forearm Exam: normal inspection Wrist Exam: normal inspection Hand Exam: normal inspection - Lower Extremity Hips: bilateral: no evidence of injury - Narrative Narrative Physical Exam: Ortho Physical Exam Assessment/Plan (1) Fracture, humerus closed Current Visit: Yes Status: Acute Qualifiers: Encounter type: initial encounter Humerus Location: surgical neck Fracture morphology: unspecified fracture morphology Fracture alignment: displaced Laterality: right Qualified Code(s): S42.211A - Unspecified displaced fracture of surgical neck of right humerus, initial encounter for closed fracture Code(s): S42.309A - UNSP FRACTURE OF SHAFT OF HUMERUS, UNSP ARM, INIT Results - Labs Lab/Micro Results: Lab Results-Last 24 Hours 04/29/24 04/29/24 04/29/24 Range/Units 00:28 00:28 07:27 WBC 11.6 H (3.98-10.04) x10^3/uL RBC 4.10 (3.93-5.22) x10^6/uL Hgb 11.3 (11.2-15.7) g/dL Hct 35.4 (34.1-44.9) % MCV 86.3 (79.4-94.8) fL MCH 27.6 (25.6-32.2) pg MCHC 31.9 L (32.2-35.5) g/dL RDW 13.2 (11.7-14.4) % Plt Count 183 (182-369) x10^3/uL MPV 10.3 (9.4-12.3) fL Gran % 85.6 H (34.0-71.1) % Immature Gran % (Auto) 0.6 H (0.001-0.429) % Nucleat RBC Rel Count 0.0 (0.00-0.2) % Eos # (Auto) 0.04 (0.04-0.36) x10^3/uL Immature Gran # (Auto) 0.07 H (0.001-0.031) x10^3u/L Absolute Lymphs (auto) 0.88 L (1.18-3.74) x10^3/uL Absolute Monos (auto) 0.66 (0.24-0.86) x10^3/uL Absolute Nucleated RBC 0.00 (0.00-0.012) x10^3u/L Lymphocytes % 7.6 L (19.3-51.7) % Monocytes % 5.7 (4.7-12.5) % Eosinophils % 0.3 L (0.7-5.8) % Basophils % 0.2 (0.1-1.2) % Absolute Granulocytes 9.92 H (1.56-6.13) x10^3/uL Basophils # 0.02 (0.01-0.08) x10^3/uL Sodium 136 (135-145) mmol/L Potassium 3.8 (3.5-5.1) mmol/L Chloride 100 (98-107) mmol/L Carbon Dioxide 29 (22-30) mmol/L Anion Gap 11.4 (5-15) MEQ/L BUN 14 (7-17) mg/dL Creatinine 1.19 H (0.52-1.04) mg/dL Estimated GFR 49.2 ML/MIN Glucose 160 H (74-106) mg/dL POC Glucometer 119 H (74 to 106) mg/dL Calcium 9.2 (8.4-10.2) mg/dL Total Bilirubin 1.30 (0.2-1.3) mg/dL AST 36 (14-36) U/L ALT 20 (0-35) U/L Alkaline Phosphatase 100 (38-126) U/L Serum Total Protein 7.5 (6.3-8.2) g/dL Albumin 4.1 (3.5-5.0) g/dL - Radiology Impressions Radiology Exams & Impressions: Radiology Procedures Category Date Time Status HUMERUS Stat Exams 04/28/24 23:40 Completed SHOULDER Stat Exams 04/28/24 23:40 Completed UPPER EXTREMITY W/O CONTRAST [CT] Stat Exams 04/29/24 00:54 Completed - Respiratory Respiratory Therapy 04/29/24 10:38 Oxygen Nasal Cannula 2 lpm
--- NOTE | 2024-04-29 11:03 | PCM.CONS ---
History of Present Illness - Consult Date of Consultation Date: 04/29/24 Reason for Consult: Right shoulder pain Consulting Provider: KAI YOUSIF MD - [facility] History of Present Illness: is a 68 year old female Who presented to the emergency room at [facility] last night with chief complaint of right shoulder pain. She has multiple medical problems including atrial fibrillation, hypertension, hypothyroidism, GERD syndrome, anxiety, obesity, recurrent falls, walker dependent, recent cervical spinal fracture. She fell at her home while going to the bathroom last night, lost her balance and landed on right shoulder. 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 In February she had a cervical spinal fracture, details not known currently, states that she has a follow-up appointment with her spinal surgeon next week and has not yet been cleared to remove her neck brace. States that she was hospitalized 5 days at [facility] in [place]. States that she was living in [facility] when she had her bilateral ankle surgeries but has moved twice since then. She now lives in the [facility] to be closer to her daughter. The patient currently lives alone. - Review of Systems Constitutional: Fatigue, Weakness Eyes: No Symptoms Ears, Nose, & Throat: No Symptoms Respiratory: No Symptoms Musculoskeletal: Arthralgias, Back Pain, Neck Pain, Deformity Medications & Allergies Home Medications: Home Medication List Apixaban [Eliquis] 5 mg PO BID 02/08/24 [History Confirmed 04/29/24] Bupropion HCl 150 mg Sr [Wellbutrin SR 150 MG] 150 mg PO DAILY 02/08/24 [History Confirmed 04/29/24] Duloxetine HCl 60 mg PO DAILY 02/08/24 [History Confirmed 04/29/24] Famotidine 40 mg PO DAILY 02/08/24 [History Confirmed 04/29/24] Gabapentin 400 mg PO QID 02/08/24 [History Confirmed 04/29/24] Hydrochlorothiazide 25 mg [hydroDIURIL 25 MG] 25 mg PO DAILY 02/08/24 [History Confirmed 04/29/24] Levothyroxine Sodium 50 mcg PO DAILY 02/08/24 [History Confirmed 04/29/24] Meclizine HCl 25 mg [Antivert 25 mg] 25 mg PO TID 02/08/24 [History Confirmed 04/29/24] Mirtazapine 15 mg PO HS 02/08/24 [History Confirmed 04/29/24] Primidone 50 MG [Mysoline 50Mg] 50 mg PO DAILY 02/08/24 [History Confirmed 04/29/24] Simvastatin 80 mg PO DAILY 02/08/24 [History Confirmed 04/29/24] Sucralfate 1 gm [Carafate 1 GM] 1 g PO QID 02/08/24 [History Confirmed 04/29/24] Tirzepatide [Mounjaro] 2.5 mg SQ WEEKLY 02/08/24 [History Confirmed 04/29/24] Allergies/Adverse Reactions: Allergies Allergy/AdvReac Type Severity Reaction Status Date / Time No Known Drug Allergies Allergy Verified 04/28/24 23:09 - Past Medical History Past Medical History: Yes Neurological History: Migraines ENT History: No Pertinent History Cardiac History: Arrhythmia Respiratory History: Asthma, COPD Endocrine Medical History: Diabetes Type II, Hypothyroidism, Other Musculoskelatal History: Fractures, Osteoarthritis, Osteoporosis GI Medical History: Gallbladder Disease History: No Pertinent History Reproductive Disorders: No Pertinent History Comment: LIVER SURGERY. NEEDS CATARACT SURGERY, HAS TO WAIT UNTIL NECK IS HEALED. B ANKLES WITH HARDWARE, RODS IN B TIBIAS DUE TO OSTEOPOROSIS. - Past Surgical History Past Surgical History: Yes Neuro Surgical History: No Pertinent History Cardiac History: No Pertinent History Respiratory Surgery: No Pertinent History GI Surgical History: Appendectomy, Cholecystectomy Genitourinary Surgical Hx: No Pertinent History Musculskeletal Surgical Hx: Other Female Surgical History: Hysterectomy, Section, Tubal Ligation Other Surgical History: bilateral ankles - Social History Smoking Status: Never smoker Exposure to second hand smoke: No Alcohol: Rarely Drug Use: other - Social Determinants of Health Will the patient participate in the screening: Yes Do you worry about a steady place to live?: No Do you have any problems with any of the following?: No known problems In the past 12 months,have you had to go without utilities?: No Have you or anyone in your house had to go without enough: No Transportation Issues: No Has anyone in your support network made you feel unsafe?: No Does the patient want assistance with any of the above?: No - Nursing Vital Signs Nursing Vital Signs: Vital Signs - 24 hr Temp Pulse Resp BP BP Pulse Ox 04/29/24 07:10 97.8 F 84 16 116/65 95 04/29/24 05:23 92 L 04/29/24 04:18 97.5 F 89 18 114/60 96 04/29/24 04:00 97.5 F 89 18 114/60 96 04/29/24 03:44 98 04/29/24 03:33 96 04/29/24 03:30 81 102/80 94 L 04/29/24 03:00 79 102/70 93 L 04/29/24 02:30 77 109/78 94 L 04/29/24 00:30 84 117/79 96 04/29/24 00:00 90 22 129/87 100 04/28/24 23:48 83 141/87 98 04/28/24 23:10 97.8 F 80 18 138/84 95 04/28/24 23:08 79 138/84 99 - Physical Exam General Appearance: no apparent distress Skin Exam: normal color, warm, dry SpO2: 95 - Upper Extremity Shoulder Exam: limited ROM, pain, swelling Elbow/Forearm Exam: normal inspection Wrist Exam: normal inspection Hand Exam: normal inspection - Narrative Narrative Physical Exam: Ortho Physical Exam Assessment/Plan (1) Fracture, humerus closed Status: Acute Qualifiers: Encounter type: initial encounter Humerus Location: surgical neck Fracture morphology: unspecified fracture morphology Fracture alignment: displaced Laterality: right Qualified Code(s): S42.211A - Unspecified displaced fracture of surgical neck of right humerus, initial encounter for closed fracture Assessment & Plan: will need surgical treatment, likely orif, although arthroplasty is an option. will not be able to WB with orif and she is walker dependent. concern about recent cervical fracture and intubation, do not have physician anesthesia here and currently dono t have records of her fracture form [place]. pt is high risk due to her body habitus, health stautus, cervical fractue. [facility] recommend transfer Code(s): S42.309A - UNSP FRACTURE OF SHAFT OF HUMERUS, UNSP ARM, INIT (2) Fall with significant injury Status: Acute Qualifiers: Encounter type: sequela Qualified Code(s): W19.XXXS - Unspecified fall, sequela Code(s): W19.XXXA - UNSPECIFIED FALL, INITIAL ENCOUNTER (3) Obesity Status: Acute Code(s): E66.9 - OBESITY, UNSPECIFIED Results - Labs Lab/Micro Results: Lab Results-Last 24 Hours 04/29/24 04/29/24 04/29/24 Range/Units 00:28 00:28 07:27 WBC 11.6 H (3.98-10.04) x10^3/uL RBC 4.10 (3.93-5.22) x10^6/uL Hgb 11.3 (11.2-15.7) g/dL Hct 35.4 (34.1-44.9) % MCV 86.3 (79.4-94.8) fL MCH 27.6 (25.6-32.2) pg MCHC 31.9 L (32.2-35.5) g/dL RDW 13.2 (11.7-14.4) % Plt Count 183 (182-369) x10^3/uL MPV 10.3 (9.4-12.3) fL Gran % 85.6 H (34.0-71.1) % Immature Gran % (Auto) 0.6 H (0.001-0.429) % Nucleat RBC Rel Count 0.0 (0.00-0.2) % Eos # (Auto) 0.04 (0.04-0.36) x10^3/uL Immature Gran # (Auto) 0.07 H (0.001-0.031) x10^3u/L Absolute Lymphs (auto) 0.88 L (1.18-3.74) x10^3/uL Absolute Monos (auto) 0.66 (0.24-0.86) x10^3/uL Absolute Nucleated RBC 0.00 (0.00-0.012) x10^3u/L Lymphocytes % 7.6 L (19.3-51.7) % Monocytes % 5.7 (4.7-12.5) % Eosinophils % 0.3 L (0.7-5.8) % Basophils % 0.2 (0.1-1.2) % Absolute Granulocytes 9.92 H (1.56-6.13) x10^3/uL Basophils # 0.02 (0.01-0.08) x10^3/uL Sodium 136 (135-145) mmol/L Potassium 3.8 (3.5-5.1) mmol/L Chloride 100 (98-107) mmol/L Carbon Dioxide 29 (22-30) mmol/L Anion Gap 11.4 (5-15) MEQ/L BUN 14 (7-17) mg/dL Creatinine 1.19 H (0.52-1.04) mg/dL Estimated GFR 49.2 ML/MIN Glucose 160 H (74-106) mg/dL POC Glucometer 119 H (74 to 106) mg/dL Calcium 9.2 (8.4-10.2) mg/dL Total Bilirubin 1.30 (0.2-1.3) mg/dL AST 36 (14-36) U/L ALT 20 (0-35) U/L Alkaline Phosphatase 100 (38-126) U/L Serum Total Protein 7.5 (6.3-8.2) g/dL Albumin 4.1 (3.5-5.0) g/dL - Radiology Impressions Radiology Exams & Impressions: Radiology Procedures Category Date Time Status HUMERUS Stat Exams 04/28/24 23:40 Completed SHOULDER Stat Exams 04/28/24 23:40 Completed UPPER EXTREMITY W/O CONTRAST [CT] Stat Exams 04/29/24 00:[address] scan right upper extremity, 04/29/2024 1. Comminuted, partially displaced, non-articular, impacted fracture of the surgical neck of the right humerus is noted. The fracture line is seen extending into the humeral head. 2. Mild anterior angulation of the distal fracture fragment is seen. 3. Multiple small bony fragments are noted in the adjacent periarticular, periosseous soft tissue. 4. Significant periosseous soft tissue edema is seen. 5. Right deltoid muscle appears bulky. Suspicious well defined hypodensity is noted within the lateral fibers of the deltoid muscle. Possibility of tear/hemorrhage. 6. Fractures of right 3rd to 6th ribs seen- possibly old healed fractures. - Respiratory Respiratory Therapy 04/29/24 10:38 Oxygen Nasal Cannula 2 lpm
--- NOTE | 2024-04-29 12:12 | PCM.DS ---
Discharge Summary Date of Admission: 04/29/24 03:29 Date of Discharge: 04/29/24 Admitting Physician: BRENDA KANG MD Consults: Consults on Case 04/29/24 07:49 Consult Ortho ROUTINE Primary Care Provider: EKATERINA WALL Allergies Allergies No Known Drug Allergies Allergy (Verified 04/28/24 23:09) Hospital Summary - Hospital Course Hospital Course: 04/29/24 Ms. SMART is a 68 year old female with a past medical history significant for atrial fibrillation, hypertension, osteoporosis, recent with neck fracture, rib fractures, leg fractures, and imbalance leading to multiple falls. She presented while walking to her bathroom when she lost her balance and fell onto her right side. She heard a pop on her right shoulder and developed severe pain, 10/10 in severity. No dizziness but did feel some lightheadedness prior to her fall. No chest pain, palpitations, or shortness of breath. CT scan demonstrated comminuted fracture in her R humerus neck extending into the head. Some numbness in her R elbow, but has normalized. No loss of feeling or sensation to her wrist or fingers. No fever/chills. No nausea, vomiting or diarrhea. No dysuria, hematuria or urinary urgency. Per ortho she needs transferred to a higher level of care. Due to her recent cervical fx she will need neurology clearance per ortho. She is to be wearing a neck brace but decided to stop wearing it and has not been cleared to do so. She States she is to be laying flat or sitting straight up per neurosurgery instructions. Pt accepted at [facility]. - Vitals & Intake/Output Vital Signs: Vital Signs Temperature 97.8 F 04/29/24 07:10 Pulse Rate 84 04/29/24 07:10 Respiratory Rate 16 04/29/24 07:10 Blood Pressure 116/65 04/29/24 07:10 O2 Sat by Pulse Oximetry 95 04/29/24 11:05 Intake & Output: Intake & Output 04/27/24 04/28/24 04/29/24 04/30/24 11:59 11:59 11:59 11:59 Intake Total 0 Output Total 0 Balance 0 Weight 110.5 kg - Lab Result Diagrams: 04/29/24 00:28 04/29/24 00:28 Lab Results-Last 24 Hrs: Lab Results-Last 24 Hours 04/29/24 04/29/24 04/29/24 Range/Units 00:28 00:28 07:27 WBC 11.6 H (3.98-10.04) x10^3/uL RBC 4.10 (3.93-5.22) x10^6/uL Hgb 11.3 (11.2-15.7) g/dL Hct 35.4 (34.1-44.9) % MCV 86.3 (79.4-94.8) fL MCH 27.6 (25.6-32.2) pg MCHC 31.9 L (32.2-35.5) g/dL RDW 13.2 (11.7-14.4) % Plt Count 183 (182-369) x10^3/uL MPV 10.3 (9.4-12.3) fL Gran % 85.6 H (34.0-71.1) % Immature Gran % (Auto) 0.6 H (0.001-0.429) % Nucleat RBC Rel Count 0.0 (0.00-0.2) % Eos # (Auto) 0.04 (0.04-0.36) x10^3/uL Immature Gran # (Auto) 0.07 H (0.001-0.031) x10^3u/L Absolute Lymphs (auto) 0.88 L (1.18-3.74) x10^3/uL Absolute Monos (auto) 0.66 (0.24-0.86) x10^3/uL Absolute Nucleated RBC 0.00 (0.00-0.012) x10^3u/L Lymphocytes % 7.6 L (19.3-51.7) % Monocytes % 5.7 (4.7-12.5) % Eosinophils % 0.3 L (0.7-5.8) % Basophils % 0.2 (0.1-1.2) % Absolute Granulocytes 9.92 H (1.56-6.13) x10^3/uL Basophils # 0.02 (0.01-0.08) x10^3/uL Sodium 136 (135-145) mmol/L Potassium 3.8 (3.5-5.1) mmol/L Chloride 100 (98-107) mmol/L Carbon Dioxide 29 (22-30) mmol/L Anion Gap 11.4 (5-15) MEQ/L BUN 14 (7-17) mg/dL Creatinine 1.19 H (0.52-1.04) mg/dL Estimated GFR 49.2 ML/MIN Glucose 160 H (74-106) mg/dL POC Glucometer 119 H (74 to 106) mg/dL Calcium 9.2 (8.4-10.2) mg/dL Total Bilirubin 1.30 (0.2-1.3) mg/dL AST 36 (14-36) U/L ALT 20 (0-35) U/L Alkaline Phosphatase 100 (38-126) U/L Serum Total Protein 7.5 (6.3-8.2) g/dL Albumin 4.1 (3.5-5.0) g/dL - Radiology Exams Ordered Rad Exams-Entire Visit: Radiology Procedures Category Date Time Status HUMERUS Stat Exams 04/28/24 23:40 Completed SHOULDER Stat Exams 04/28/24 23:40 Completed UPPER EXTREMITY W/O CONTRAST [CT] Stat Exams 04/29/24 00:54 Completed - Procedures and Test Procedures and Tests throughout Hospitalization: Therapy Orders & Screens 04/29/24 10:38 Oxygen Nasal Cannula 2 lpm Comment: Diagnosis: shoulder fx Discharge Exam General Appearance: no apparent distress, alert, obese Neurologic Exam: alert, oriented x 3, cooperative, normal mood/affect, nml cerebellar function, sensation nml, No motor deficits Eye Exam: PERRL, EOMI, eyes nml inspection Ears, Nose, Throat Exam: normal ENT inspection, pharynx normal, moist mucous membranes Neck Exam: normal inspection, non-tender, supple, full range of motion Respiratory Exam: normal breath sounds, lungs clear, No respiratory distress Cardiovascular Exam: regular rate/rhythm, normal heart sounds Gastrointestinal/Abdomen Exam: soft, No tenderness, No mass Pelvic Exam: deferred Rectal Exam: deferred Back Exam: normal inspection, normal range of motion, No CVA tenderness, No vertebral tenderness Extremity Exam: joint swelling, limited range of motion (Right shoulder/ R arm) Skin Exam: normal color, warm, dry Final Diagnosis/Problem List - Final Discharge Diagnosis/Problem (1) Fracture, humerus closed Current Visit: Yes Status: Acute Assessment & Plan: Fall leading to R humeral neck fracture extending into head with underlying brittle bone disease 1. Admit to hospital 2. Orthopedic surgery consult- recommendation is tx to higher level of care 3. Will keep NPO, hold Eliquis for now 4. DVT/GI prophylaxis 5. Pain control 6. Keep sling for now to maintain stability/immobilization 7. SCD's Code(s): S42.309A - UNSP FRACTURE OF SHAFT OF HUMERUS, UNSP ARM, INIT (2) Acute kidney injury Current Visit: Yes Status: Acute Assessment & Plan: Likely from prerenal azotemia in setting of HCTZ (baseline Cr 0.8) 1. IVFs 2. Hold HCTZ 3. Follow I/Os 4. Watch electrolytes, creatinine closely Code(s): N17.9 - ACUTE KIDNEY FAILURE, UNSPECIFIED (3) Atrial fibrillation Current Visit: Yes Status: Acute Assessment & Plan: On Eliquis 1. Monitor on telemetry 2. Rate control 3. Hold Eliquis for possible surgery 4. Last dose yesterday morning Code(s): I48.91 - UNSPECIFIED ATRIAL FIBRILLATION (4) Fall with significant injury Current Visit: No Status: Acute Assessment & Plan: Suspect some orthostatics in the setting of dehydration 1. Keep on telemetry for arrhythmia 2. Check orthostatic bp 3. Fall precautions Code(s): W19.XXXA - UNSPECIFIED FALL, INITIAL ENCOUNTER (5) Hypertensive chronic kidney disease with stage 1 through stage 4 chronic kidney disease, or unspecified chronic kidney disease Current Visit: Yes Status: Chronic Assessment & Plan: Blood pressure under reasonable control 1. Continue bp meds other than HCTZ 2. Monitor bp readings Code(s): I12.9 - HYPERTENSIVE CHRONIC KIDNEY DISEASE W STG 1-4/UNSP CHR KDNY (6) Morbid obesity Current Visit: Yes Status: Chronic Assessment & Plan: - advised diet and exercise control Code(s): E66.01 - MORBID (SEVERE) OBESITY DUE TO EXCESS CALORIES - Discharge Discharge Date: 04/29/24 Disposition: XFER OTHER Condition: Stable Prescriptions: Continue Primidone 50 MG [Mysoline 50Mg] 50 mg PO DAILY Tirzepatide [Mounjaro] 2.5 mg SQ WEEKLY Simvastatin 80 mg PO DAILY Mirtazapine 15 mg PO HS Meclizine HCl 25 mg [Antivert 25 mg] 25 mg PO TID Levothyroxine Sodium 50 mcg PO DAILY Gabapentin 400 mg PO QID Famotidine 40 mg PO DAILY Duloxetine HCl 60 mg PO DAILY Bupropion HCl 150 mg Sr [Wellbutrin SR 150 MG] 150 mg PO DAILY Apixaban [Eliquis] 5 mg PO BID Hydrochlorothiazide 25 mg [hydroDIURIL 25 MG] 25 mg PO DAILY Sucralfate 1 gm [Carafate 1 GM] 1 g PO QID Follow up with: EKATERINA WALL MD [Primary Care Provider] -
[2024-04-29 16:22] LABS: Appearance Clear (Clear); Bacteria None Seen /HPF (None Seen); Bilirubin Small (Negative); Blood Negative (Negative); Epithelial Cells None Seen /HPF (None Seen); Glucose, Urine Negative (Negative); Ketones Trace (Negative); Leukocyte Esterase Trace (Negative); Nitrite Negative (Negative); Ph 5.5 (4.6-8.0); Protein,Urine Dip 30 (Negative); RBC 0-2 /HPF (0-5); Specific Gravity >=1.030 (1.005-1.030)
[2024-04-30 06:27] LABS: ALBUMIN 3.5 g/dL (3.5-5.0); ANION GAP 10.9 MEQ/L (5-15); BILIRUBIN,TOTAL 1.8 mg/dL (0.2-1.3); Calcium 8.3 mg/dL (8.4-10.2); Creatinine 1 0.96 mg/dL (0.52-1.04); EST GLOMERULAR FILTRATION RATE 63.7 ML/MIN; Potassium 3.6 mmol/L (3.5-5.1); Total Protein 6.6 g/dL (6.3-8.2)
[2024-04-30 07:11] VITALS: BP 113/55; PULSE 82; RESP 15; TEMP 97.3
[2024-04-30 08:02] VITALS: O2SAT 95
--- NOTE | 2024-04-30 11:19 | PCM.DS ---
Discharge Summary Date of Admission: 04/29/24 03:29 Date of Discharge: 04/30/24 Admitting Physician: BRENDA KANG MD Consults: Consults on Case 04/29/24 07:49 Consult Ortho ROUTINE Primary Care Provider: EKATERINA WALL Allergies Allergies No Known Drug Allergies Allergy (Verified 04/28/24 23:09) Hospital Summary - Hospital Course Hospital Course: 04/29/24 Ms. SMART is a 68 year old female with a past medical history significant for atrial fibrillation, hypertension, osteoporosis, recent with neck fracture, rib fractures, leg fractures, and imbalance leading to multiple falls. She presented while walking to her bathroom when she lost her balance and fell onto her right side. She heard a pop on her right shoulder and developed severe pain, 10/10 in severity. No dizziness but did feel some lightheadedness prior to her fall. No chest pain, palpitations, or shortness of breath. CT scan demonstrated comminuted fracture in her R humerus neck extending into the head. Some numbness in her R elbow, but has normalized. No loss of feeling or sensation to her wrist or fingers. No fever/chills. No nausea, vomiting or diarrhea. No dysuria, hematuria or urinary urgency. Per ortho she needs transferred to a higher level of care. Due to her recent cervical fx she will need neurology clearance per ortho. She is to be wearing a neck brace but decided to stop wearing it and has not been cleared to do so. She States she is to be laying flat or sitting straight up per neurosurgery instructions. Pt accepted at [facility]. 04/30/24 Pt accepted with bed at [facility] last night however transportation was an issue. Ambulance came this morning around 8:30 to transfer pt. Plan was for pt to have surgery there today. Pain is well control with IV meds and she had no further complaints at this time. - Vitals & Intake/Output Vital Signs: Vital Signs Temperature 97.3 F 04/30/24 07:11 Pulse Rate 82 04/30/24 07:11 Respiratory Rate 15 04/30/24 07:11 Blood Pressure 113/55 04/30/24 07:11 O2 Sat by Pulse Oximetry 95 04/30/24 08:01 Intake & Output: Intake & Output 04/27/24 04/28/24 04/29/24 04/30/24 11:59 11:59 11:59 11:59 Intake Total 0 1654 Output Total 0 650 Balance 0 1004 Weight 110.5 kg - Lab Result Diagrams: 04/29/24 00:28 04/30/24 05:18 Lab Results-Last 24 Hrs: Lab Results-Last 24 Hours 04/29/24 04/30/24 04/30/24 Range/Units 15:59 05:18 07:20 Sodium 137 (135-145) mmol/L Potassium 3.6 (3.5-5.1) mmol/L Chloride 102 (98-107) mmol/L Carbon Dioxide 27 (22-30) mmol/L Anion Gap 10.9 (5-15) MEQ/L BUN 15 (7-17) mg/dL Creatinine 0.96 (0.52-1.04) mg/dL Estimated GFR 63.7 ML/MIN Glucose 130 H (74-106) mg/dL POC Glucometer 125 H (74 to 106) mg/dL Calcium 8.3 L (8.4-10.2) mg/dL Total Bilirubin 1.80 H (0.2-1.3) mg/dL AST 33 (14-36) U/L ALT 14 (0-35) U/L Alkaline Phosphatase 98 (38-126) U/L Serum Total Protein 6.6 (6.3-8.2) g/dL Albumin 3.5 (3.5-5.0) g/dL Urine Color Dark Yellow A (Yellow) Urine Appearance Clear (Clear) Urine pH 5.5 (4.6-8.0) Ur Specific [place] >=1.030 A (1.005-1.030) Urine Protein 30 (Negative) Urine Glucose (UA) Negative (Negative) mg/dL Urine Ketones Trace A (Negative) Urine Blood Negative (Negative) Urine Nitrite Negative (Negative) Urine Bilirubin Small A (Negative) Urine Urobilinogen 1.0 A (0.2) mg/dL Ur Leukocyte Esterase Trace A (Negative) U Hyaline Cast (Auto) 3-5 A (0-2) /LPF Urine Microscopic RBC 0-2 (0-5) /HPF Urine Microscopic WBC 6-10 A (0-5) /HPF Ur Epithelial Cells None Seen (None Seen) /HPF Urine Bacteria None Seen (None Seen) /HPF Urine Culture Reflexed YES (NO) Micro Results-Entire Visit: Microbiology 04/29/24 15:59 Urine Culture - Preliminary Urine, Catheterized NO GROWTH TO DATE Accuchecks Date 04/30/24 Time 07:44 - Radiology Exams Ordered Rad Exams-Entire Visit: Radiology Procedures Category Date Time Status HUMERUS Stat Exams 04/28/24 23:40 Completed SHOULDER Stat Exams 04/28/24 23:40 Completed UPPER EXTREMITY W/O CONTRAST [CT] Stat Exams 04/29/24 00:54 Completed - Procedures and Test Procedures and Tests throughout Hospitalization: Therapy Orders & Screens 04/29/24 10:38 Oxygen Nasal Cannula 2 lpm Comment: Diagnosis: shoulder fx Discharge Exam General Appearance: no apparent distress, alert, obese Neurologic Exam: alert, oriented x 3, cooperative, normal mood/affect, nml cerebellar function, sensation nml, No motor deficits Eye Exam: PERRL, EOMI, eyes nml inspection Ears, Nose, Throat Exam: normal ENT inspection, pharynx normal, moist mucous mem branes Neck Exam: normal inspection, non-tender, supple, full range of motion Respiratory Exam: normal breath sounds, lungs clear, No respiratory distress Cardiovascular Exam: regular rate/rhythm, normal heart sounds Gastrointestinal/Abdomen Exam: soft, No tenderness, No mass Pelvic Exam: deferred Rectal Exam: deferred Back Exam: normal inspection, normal range of motion, No CVA tenderness, No vertebral tenderness Extremity Exam: normal inspection, normal range of motion, limited range of motion (Right arm/ shoulder) Skin Exam: normal color, warm, dry Final Diagnosis/Problem List - Final Discharge Diagnosis/Problem (1) Fracture, humerus closed Status: Acute Code(s): S42.309A - UNSP FRACTURE OF SHAFT OF HUMERUS, UNSP ARM, INIT (2) Acute kidney injury Status: Acute Code(s): N17.9 - ACUTE KIDNEY FAILURE, UNSPECIFIED (3) Atrial fibrillation Status: Acute Code(s): I48.91 - UNSPECIFIED ATRIAL FIBRILLATION (4) Fall with significant injury Status: Acute Code(s): W19.XXXA - UNSPECIFIED FALL, INITIAL ENCOUNTER (5) Hypertensive chronic kidney disease with stage 1 through stage 4 chronic kidney disease, or unspecified chronic kidney disease Status: Chronic Code(s): I12.9 - HYPERTENSIVE CHRONIC KIDNEY DISEASE W STG 1- 4/UNSP CHR KDNY (6) Morbid obesity Status: Chronic Assessment & Plan: (1) Fracture, humerus closed Current Visit: Yes Status: Acute Assessment & Plan: Fall leading to R humeral neck fracture extending into head with underlying brittle bone disease 1. Admit to hospital 2. Orthopedic surgery consult- recommendation is tx to higher level of care 3. Will keep NPO, hold Eliquis for now 4. DVT/GI prophylaxis 5. Pain control with IV narcotic pain meds 6. Keep sling for now to maintain stability/immobilization 7. SCD's 04/30 - ortho note reviewed Code(s): S42.309A - UNSP FRACTURE OF SHAFT OF HUMERUS, UNSP ARM, INIT (2) Acute kidney injury Current Visit: Yes Status: Acute Assessment & Plan: Likely from prerenal azotemia in setting of HCTZ (baseline Cr 0.8) 1. IVFs 2. Hold HCTZ 3. Follow I/Os 4. Watch electrolytes, creatinine closely 04/30 - TIM resolved Code(s): N17.9 - ACUTE KIDNEY FAILURE, UNSPECIFIED (3) Atrial fibrillation Current Visit: Yes Status: Acute Assessment & Plan: On Eliquis 1. Monitor on telemetry 2. Rate control 3. Hold Eliquis for possible surgery 4. Last dose yesterday morning Code(s): I48.91 - UNSPECIFIED ATRIAL FIBRILLATION (4) Fall with significant injury Current Visit: No Status: Acute Assessment & Plan: Suspect some orthostatics in the setting of dehydration 1. Keep on telemetry for arrhythmia 2. Check orthostatic bp 3. Fall precautions Code(s): W19.XXXA - UNSPECIFIED FALL, INITIAL ENCOUNTER (5) Hypertensive chronic kidney disease with stage 1 through stage 4 chronic k idney disease, or unspecified chronic kidney disease Current Visit: Yes Status: Chronic Assessment & Plan: Blood pressure under reasonable control 1. Continue bp meds other than HCTZ 2. Monitor bp readings Code(s): I12.9 - HYPERTENSIVE CHRONIC KIDNEY DISEASE W STG 1-4/UNSP CHR KDNY (6) Morbid obesity Current Visit: Yes Status: Chronic Assessment & Plan: - advised diet and exercise control Code(s): E66.01 - MORBID (SEVERE) OBESITY DUE TO EXCESS CALORIES Code(s): E66.01 - MORBID (SEVERE) OBESITY DUE TO EXCESS CALORIES - Discharge Discharge Date: 04/30/24 ([facility]) Disposition: XFER OTHER Condition: Stable Prescriptions: Continue Primidone 50 MG [Mysoline 50Mg] 50 mg PO DAILY Tirzepatide [Mounjaro] 2.5 mg SQ WEEKLY Simvastatin 80 mg PO DAILY Mirtazapine 15 mg PO HS Meclizine HCl 25 mg [Antivert 25 mg] 25 mg PO TID Levothyroxine Sodium 50 mcg PO DAILY Gabapentin 400 mg PO QID Famotidine 40 mg PO DAILY Duloxetine HCl 60 mg PO DAILY Bupropion HCl 150 mg Sr [Wellbutrin SR 150 MG] 150 mg PO DAILY Apixaban [Eliquis] 5 mg PO BID Hydrochlorothiazide 25 mg [hydroDIURIL 25 MG] 25 mg PO DAILY Sucralfate 1 gm [Carafate 1 GM] 1 g PO QID Follow up with: EKATERINA WALL MD [Primary Care Provider] -
== END 2024-04-30 09:25 ==
LOC: ED 23:00 → MED SURG 04-29 03:29
PROVIDERS: ADMIT Internal Medicine Nephrology; ATTEND Internal Medicine Nephrology
DX: S42.214A Unspecified nondisplaced fracture of surgical neck of right humerus, initial encounter for closed fracture (principal); N17.9 Acute kidney failure, unspecified; I48.91 Unspecified atrial fibrillation; Z79.01 Long term (current) use of anticoagulants; W19.XXXA Unspecified fall, initial encounter; E11.22 Type 2 diabetes mellitus with diabetic chronic kidney disease; I12.9 Hypertensive chronic kidney disease with stage 1 through stage 4 chronic kidney disease, or unspecified chronic kidney disease; N18.9 Chronic kidney disease, unspecified; E66.01 Morbid (severe) obesity due to excess calories; Z79.899 Other long term (current) drug therapy
CPT/HCPCS: 36415; 73030; 73060; 73200; 80053; 81001; 82947; 85025; 87086; 93005; 94760; 94762; 96372; 99285; J1171; J3010; A9270-GY

== ENCOUNTER 2024-07-26 06:11 | Day surgery (SDC) | payer MEDICARE ==
[~2024-07-26 06:11] MED LIST: DEXMEDETOMIDINE 80 MCG/20ML-NS IV NR; DEXTENZA OP NR; Epinephrine Preservative Free 1 MG/ML INTRAOP NR
[2024-07-26] MEDS ORDERED: Lactated Ringers 1,000 ML IV ONE (06:36)
[2024-07-26] MEDS: Lactated Ringers 1,000 ML IV SCH (07:09)
[2024-07-26] MEDS: TETRACAINE 0.5% STERI-UNIT SOL OP ONE ×2 (07:09→07:28)
[2024-07-26] MEDS: Ak-Dilate OPHTHALMIC*** 0.71 ML, Cyclogyl 1% OPHTH SOL 0.71 ML, GATIFLOXACIN 0.5% OPHTH... OP SCH (07:10)
[2024-07-26 07:11] LABS: ANION GAP 12.4 MEQ/L (5-15); Creatinine 1 0.71 mg/dL (0.52-1.04); EST GLOMERULAR FILTRATION RATE 90.9 ML/MIN; Potassium 3.8 mmol/L (3.5-5.1)
[2024-07-26] MEDS ORDERED: VIGAMOX/BSS 0.15% SYR IO NR (07:15)
[2024-07-26] MEDS ORDERED: TRIAMCINOLONE 15 MG/ML INJ INTRAOP NR (07:15)
[2024-07-26] MEDS ORDERED: BETADINE 5% OPHTHALMIC 30 ML OP NR (07:15)
[2024-07-26] MEDS ORDERED: Zofran 4 MG/2 ML VIAL IV PRN (07:30)
[2024-07-26] MEDS ORDERED: propofoL IV ONE ×2 (08:25→08:34)
[2024-07-26] MEDS: ACETAZOLAMIDE 250 MG TABLET PO ONE (08:58)
[2024-07-26 09:18] VITALS: BP 102/74; PULSE 84; RESP 16; TEMP 97.8; O2SAT 99
== END 2024-07-26 09:16 | disposition home or self-care (01) ==
LOC: SDC 06:11
PROVIDERS: ATTEND Ophthalmology
DX: H25.812 Combined forms of age-related cataract, left eye (principal); E11.9 Type 2 diabetes mellitus without complications; I48.91 Unspecified atrial fibrillation; J44.9 Chronic obstructive pulmonary disease, unspecified; E07.9 Disorder of thyroid, unspecified
CPT/HCPCS: 36415; 80048; 93005; 99100; C1780; J0171; J1096; J2704; A9270-GY

== ENCOUNTER 2024-08-30 06:02 | Day surgery (SDC) | payer MEDICARE ==
[2024-08-30] MEDS ORDERED: Lactated Ringers 1,000 ML IV ONE (06:14)
[2024-08-30] MEDS: Lactated Ringers 1,000 ML IV SCH (06:18)
[2024-08-30] MEDS: TETRACAINE 0.5% STERI-UNIT SOL OP ONE ×2 (06:30→06:31)
[2024-08-30] MEDS ORDERED: Lactated Ringers 1,000 ML IV SCH (06:30)
[2024-08-30] MEDS: Ak-Dilate OPHTHALMIC*** 0.71 ML, Cyclogyl 1% OPHTH SOL 0.71 ML, GATIFLOXACIN 0.5% OPHTH... OP SCH (06:30)
[2024-08-30 06:54] LABS: INR 1.15 (0.8-3.0); PROTIME 12.4 SECONDS (9.4-12.5)
[2024-08-30] MEDS ORDERED: DEXMEDETOMIDINE 80 MCG/20ML-NS IV NR (08:00)
[2024-08-30] MEDS ORDERED: VIGAMOX/BSS 0.15% SYR IO NR (08:00)
[2024-08-30] MEDS ORDERED: BETADINE 5% OPHTHALMIC 30 ML OP NR (08:00)
[2024-08-30] MEDS ORDERED: TRIAMCINOLONE 15 MG/ML INJ INTRAOP NR (08:00)
[2024-08-30] MEDS ORDERED: OMIDRIA 1-0.3% VIAL IO NR (08:00)
[2024-08-30] MEDS ORDERED: DEXTENZA OP NR (08:00)
[2024-08-30] MEDS ORDERED: Zofran 4 MG/2 ML VIAL IV PRN (08:30)
[2024-08-30] MEDS ORDERED: Versed 2 MG/2 ML Injection ONE (08:45)
[2024-08-30] MEDS ORDERED: propofoL IV ONE ×3 (08:54→09:07)
[2024-08-30] MEDS: ACETAZOLAMIDE 250 MG TABLET PO ONE (09:18)
[2024-08-30 09:36] VITALS: PULSE 66; RESP 20; O2SAT 96
[2024-08-30 09:48] VITALS: BP 95/55; TEMP 98.2
== END 2024-08-30 09:58 | disposition home or self-care (01) ==
LOC: SDC 06:02
PROVIDERS: ATTEND Ophthalmology
DX: H25.811 Combined forms of age-related cataract, right eye (principal); E11.9 Type 2 diabetes mellitus without complications; I48.91 Unspecified atrial fibrillation
CPT/HCPCS: 36415; 82947; 85610; C1780; J1096; J1097; J2250; J2704; A9270-GY